=== PATIENT | male | born 1975 | race Caucasian/White ===

== ENCOUNTER 2022-04-01 09:35 | Outpatient (REF) | payer OTHER, SELFPAY ==
[2022-04-01 09:58] LABS: MANUAL DIFF FLAG NO
[2022-04-01 11:05] LABS: Basophils Percent Auto 0.6 % (0-2); Eosinophils Absolute Auto 0.2 X10*3/uL (0.0-0.4); Eosinophils Percent Auto 2.9 % (0-4); Hemoglobin 12.6 g/dl (14.0-18.0); Imm Gran Abs Auto 0.01 X10*3/uL (0.00-0.03); Imm Gran Pct Auto 0.2 % (0.0-0.4); Lymphocytes Absolute Auto 1.3 X10*3/uL (1.2-4.9); Lymphocytes Percent Auto 24.3 % (20-40); Mean Corpuscular HGB Conc 32.3 g/dl (31.0-36.0); Mean Corpuscular Volume 89.9 fL (80.0-98.0); Mean Platelet Volume 10.2 fL (9.4-12.4); Monocytes Absolute Auto 0.3 X10*3/uL (0.1-1.2); Monocytes Percent Auto 6.3 % (2-11); Neutrophils Absolute Auto 3.5 x10*3/uL (2.0-8.3); Neutrophils Percent Auto 65.7 % (45-73); Platelet Count 256 X10*3/uL (160-400); Red Blood Count 4.34 X10*6/uL (4.60-5.80); Red Cell Distribution Width 12.1 % (11.0-16.0); White Blood Count 5.3 X10*3/uL (4.8-10.8)
[2022-04-01 11:11] LABS: Estimated Average Glucose 105 mg/dL; Hemoglobin A1c % 5.3 %
[2022-04-01 11:33] LABS: Alanine Aminotransferase 20 U/L (0-40); Albumin Level 4.5 g/dL (3.5-5.0); Alkaline Phosphatase 87 U/L (39-117); Anion Gap 12 (12-20); Aspartate Amino Transferase 17 U/L (5-37); Bilirubin Total 0.4 mg/dL (0.0-1.0); Blood Urea Nitrogen 13 mg/dL (9-16); Calcium 9.6 mg/dL (8.4-10.2); Carbon Dioxide 30 mmol/L (22-29); Chloride 102 mmol/L (96-108); Cholesterol 179 mg/dL; Estimated Glomerular Filt Rate > 60; Glucose Fasting 102 mg/dL (60-99); HDL Cholesterol 50 mg/dL; LDL Cholesterol Calculated 121 mg/dl; Potassium 5.4 mmol/L (3.3-5.1); Sodium 139 mmol/L (135-145); Total Protein 7.7 g/dL (6.5-8.0); Triglycerides 40 mg/dL
[2022-04-01 11:49] LABS: Prostate Specific Antigen 0.14 ng/mL (<0.05-4.0); Thyroid Stimulating Hormone 0.91 uIU/mL (0.32-4.0); Vitamin D 25-OH Total 22.6 ng/mL (>30)
[2022-04-03 08:06] LABS: HBS Num1 0.94 mIU/mL (0-7.99); HIV AB/AG Nonreactive (Nonreactive); HIV Num 1 0.05 S/CO (0.00-0.99); Hepatitis B Surface Antigen Negative (Negative); ~Hepatitis B Surface Antibody NONREACTIVE (Nonreactive)
[2022-04-03 08:07] LABS: ~HepC Num1 0.11 S/CO (0.00-0.79); ~Hepatitis C Antibody Nonreactive (Nonreactive)
[2022-04-03 08:10] LABS: Syphilis Screen Nonreactive (Nonreactive)
== END 2022-04-01 09:36 | disposition home or self-care (01) ==
LOC: HO.LAB 09:35
PROVIDERS: PCP Family Medicine; Visit Provider Family Medicine
DX: E66.9 Obesity, unspecified (principal); Z11.3 Encounter for screening for infections with a predominantly sexual mode of transmission; Z12.5 Encounter for screening for malignant neoplasm of prostate; Z11.59 Encounter for screening for other viral diseases
CPT/HCPCS: 36415; 80053; 80061; 82306; 83036; 84153; 84443; 85025; 86592; 86706; 86780; 86803; 87340; 87389

== ENCOUNTER 2023-01-01 13:19 | Day surgery (SDC) | payer OTHER, SELFPAY ==
--- NOTE | 2022-12-29 10:50 | P.CONAN_ITS ---
Documented by User: Olesya Medley NP 12/29/22 10:50 HPI - Anesthesia Eval Consult details Narrative: 47yo M for Colonoscopy [facility] Past Medical History Medical History (Updated 12/29/22 @ 06:47 by Cathy Rosenbaum RN) Family history of patent foramen ovale Hx of appendicitis Surgical History Surgical History (Updated 12/29/22 @ 06:47 by Cathy Rosenbaum RN) Hx of appendectomy Hx of thumb surgery Social History Social History Patient Tobacco Use Status: Current everyday Tobacco user Are you DNR?: No Advance Directives: No Advance Directives Information Provided: Yes Nutrition Risks: No Nutritional Risk Meds Allergies Allergy/AdvReac Type Severity Reaction Status Date / Time No Known Allergies Allergy Verified 01/01/23 13:47 [No Known Allergies*] Home Medications Medication Instructions Recorded Confirmed Last Taken Type iron 12/29/22 12/29/22 Unknown History Exam Exam Date and Time: December 29, 2022 1050 Assessment and Plan Assessment Anesthesia Assessment: Chart Reviewed Documented by User: David Jacobs MD 01/01/23 13:10 [facility] Past Medical History Medical History (Updated 12/29/22 @ 06:47 by Cathy Rosenbaum RN) Family history of patent foramen ovale Hx of appendicitis Surgical History Surgical History (Updated 12/29/22 @ 06:47 by Cathy Rosenbaum RN) Hx of appendectomy Hx of thumb surgery History of Problems with Anesthesia: No Social History Social History Patient Tobacco Use Status: Current everyday Tobacco user Are you DNR?: No Advance Directives: No Advance Directives Information Provided: Yes Nutrition Risks: No Nutritional Risk Meds Allergies Allergy/AdvReac Type Severity Reaction Status Date / Time No Known Allergies Allergy Verified 01/01/23 13:47 [No Known Allergies*] Home Medications Medication Instructions Recorded Confirmed Last Taken Type iron 12/29/22 12/29/22 Unknown History Exam Airway Mallampati Class: II TM Dist: >3cm Neck ROM: Full Heart: rrr Lungs: cta Assessment and Plan Assessment Anesthesia Assessment: Anesthesia Plan Discussed Final Anesthetic Review History of Problems with Anesthesia: No NPO: Yes ASA Class: II Final Preanesthetic Review: No Changes in Pt Med Stat, Meds/Allgs Chart Reviewed, Consent Obtained/Reviewed and Anes Risks/Benef Reviewed Patient Risk: Low Procedure Risk: Low Anesthetic Plan Anesthetic Plan: MAC: and Agree w/ Assess. and Plan Disposition: Standard PACU Documented by User: Светлана Griffin MD 01/01/23 14:12 [facility] Past Medical History Medical History (Updated 12/29/22 @ 06:47 by Cathy Rosenbaum RN) Family history of patent foramen ovale Hx of appendicitis Family History Family history of problems with anesthesia: No Surgical History Surgical History (Updated 12/29/22 @ 06:47 by Cathy Rosenbaum RN) Hx of appendectomy Hx of thumb surgery Social History Social History Patient Tobacco Use Status: Current everyday Tobacco user Are you DNR?: No Advance Directives: No Advance Directives Information Provided: Yes Nutrition Risks: No Nutritional Risk Meds Allergies Allergy/AdvReac Type Severity Reaction Status Date / Time No Known Allergies Allergy Verified 01/01/23 13:47 [No Known Allergies*] Home Medications Medication Instructions Recorded Confirmed Last Taken Type iron 12/29/22 12/29/22 Unknown History Assessment and Plan Final Anesthetic Review Family History of Problems with Anesthesia: No
[2023-01-01 12:45] VITALS: BMI 26.2
[2023-01-01] MEDS: Sodium Phosphate,Mono-Dibasic 133 ML ENEMA PR (13:37)
[2023-01-01] MEDS: Lactated Ringers 1,000 ML 100 ML IVCONT (13:54)
[2023-01-01 14:04] VITALS: BP 118/76; PULSE 74; RESP 18; TEMP 36.6; O2SAT 100
--- NOTE | 2023-01-01 15:07 | P.BOP_ITS ---
Brief Operative Note Date of Service: 01/01/23 Pre-op diagnosis: Screening Post-op diagnosis: other (Incomplete colonoscopy due to poor prep) Procedure: Colonoscopy to tranverse colon Surgeon: Larry Shukla Anesthesia: MAC Was an Obstetrical Nurse used for this Procedure?: No Estimated blood loss (mL): 0 Pathology: none sent Condition: stable Disposition: PACU
[2023-01-01 15:10] VITALS: BP 95/59; PULSE 63; RESP 16; TEMP 36.4; O2SAT 96
[2023-01-01 15:25] VITALS: BP 114/79; PULSE 62; RESP 16; TEMP 36.3; O2SAT 99
--- NOTE | 2023-01-02 02:06 | OP_ITS ---
SURGEON: Larry Shukla MD INDICATIONS: The patient presents for evaluation of colorectal cancer screening. Full consent has been obtained from him for this, including risks of bleeding and perforation. PREOPERATIVE DIAGNOSIS: Colorectal cancer screening. POSTOPERATIVE DIAGNOSIS: Colorectal cancer screening, incomplete exam due to poor prep. PROCEDURE PERFORMED: Incomplete colonoscopy to the transverse colon due to poor prep. ESTIMATED BLOOD LOSS: COMPLICATIONS: ANESTHESIA: Medication used, monitored anesthesia care. ASSISTANTS: SPECIMENS: DESCRIPTION OF PROCEDURE: The patient was placed in the left lateral decubitus position. The digital rectal exam revealed no abnormalities. The Olympus video pediatric colonoscope was then entered into the rectum and advanced to the level of what appeared to be distal transverse colon judging by the anatomic appearance of the colon. Both proximal and distal to this was solid stool. Therefore, I opted not to proceed any further as visualization was severely limited. The scope was slowly withdrawn assessing all mucosal surfaces carefully, although again preparation was very limited. I did not visualize any lesions. In the rectum, the scope was retroflexed visualizing some minimal hemorrhoidal tissue, but no other pathology. The rectal mucosa appeared normal, although visualization was limitied The scope was straightened out and withdrawn from the patient. He tolerated the procedure well and was returned to the recovery area in stable condition. IMPRESSION: Incomplete colonoscopy to the transverse colon due to poor prep. Plan: The patient has been instructed to contact my office so we can schedule a colonoscopy with him again with a complete 2 day prep. This has been discussed with his significant other, Staci. MD GRECIA Tamayo/VIVIANE / [phone] AGATHA
== END 2023-01-01 15:52 | disposition home or self-care (01) ==
PROVIDERS: PCP Family Medicine; Visit Provider Internal Medicine
PROC: 0DJD8ZZ Inspection of Lower Intestinal Tract, Via Natural or Artificial Opening Endoscopic (ICD-10-PCS; CPT 45378; principal; 2023-01-01 14:20)
DX: Z12.11 Encounter for screening for malignant neoplasm of colon (principal); Z53.8 Procedure and treatment not carried out for other reasons; K64.8 Other hemorrhoids; F17.210 Nicotine dependence, cigarettes, uncomplicated
CPT/HCPCS: 45378; J3010

== ENCOUNTER 2023-08-28 13:06 | Outpatient (AMB) | payer OTHER, SELFPAY ==
--- NOTE | 2023-08-28 13:09 | MHC.OFFVIS ---
Intake Vital Signs 08/28/23 13:17 Height 5 ft 10 in Weight 178 lb 4 oz BMI 25.6 BP 140/81 H Blood Pressure Location Lt brachial Position Sitting Pulse 87 Intake Visit Reasons: Umbilical hernia Intake Note: Patient is seen in office for evaluation and treatment of an umbilical hernia. Patient c/o: onset 8 months, reducible, above the belly button, some constipation, had prior appendectomy, denies any other concerns Allergies No Known Allergies [No Known Allergies*] Allergy (Verified 01/01/23 13:47) Medication List - Last Reconciled 08/28/23 by Erik Headley MD hydroxyzine pamoate mg PO ibuprofen mg PO [iron ] sildenafil (Viagra) 100 mg PO DAILY PRN HPI HPI Comments History of Present Illness Details 47-year-old male patient presenting for evaluation of an abdominal wall hernia. He reports 1st developing the hernia 3-4 months ago and since this time the hernias increased in size. He reports some mild discomfort associated with the hernia but denies any severe pain, nausea or vomiting. He typically wears a belt over the hernia which seems to help when he needs to lift. 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 He reports a previous laparoscopic appendectomy but does not feel there is an incision at the site of the current hernia. [facility] Medical History History of substance abuse Hx of appendicitis Family history of patent foramen ovale Surgical History Hx of thumb surgery Hx of appendectomy Family History Father Lung cancer Social History Patient Tobacco Use Status: Current everyday Tobacco user Review of Systems Const All systems reviewed & are unremarkable except as noted in HPI and below Denies chills, Denies fever(s), Denies headache(s), Denies poor appetite and Denies weakness ENT Denies headache(s) Card Denies chest pain, Denies irregular heart rhythm, Denies palpitations and Denies dyspnea Resp Denies cough, Denies excessive phlegm production and Denies dyspnea GI Denies abdominal pain, Denies bloating, Denies change in bowel habits, Denies constipation, Denies heartburn, Denies diarrhea, Denies nausea and Denies vomiting Denies difficulty urinating and Denies urinary frequency Musc Denies back pain, Denies muscle weakness and Denies numbness Skin/Breast Denies changing lesions and Denies unusual bruising Neuro Denies headache(s), Denies numbness, Denies paresthesias and Denies weakness Psych Denies anxiety and Denies depression Endo Denies palpitations Andres/Lymph Denies lymphadenopathy Physical Exam Vital Signs: Last Vital Signs Pulse 87 08/28/23 13:17 BP 140/81 H 08/28/23 13:17 BMI result Body Mass Index 25.6 Const Other: Smell of alcohol and tobacco General: cooperative and no acute distress Nutritional Appearance: well nourished Orientation/consciousness: patient oriented x3 Limitations: no limitations HEENT Head: Yes normocephalic and Yes atraumatic Ears: hearing grossly normal bilaterally Resp Effort & Inspection: normal respiratory effort, no audible wheezes, no cough and no respiratory distress Cardio Jugular venous distension: no JVD GI Inspection: Yes normal to inspection Palpation (GI): Soft to palpation, nontender, no guarding, not rigid and Hernia present ventral Abdomen image: 1. Ventral hernia located just above the umbilicus measuring approximately 3 cm in diameter, reducible to light pressure. Hernia is nontender to palpation. Skin Other: Warm, dry, no rash Neuro General: patient oriented x3 Extrem General: Yes no clubbing, cyanosis or edema Assessment & Plan Assessment & Plan (1) Ventral hernia: Code(s): K43.9 - Ventral hernia without obstruction or gangrene Qualifiers: Obstruction and gangrene presence: without obstruction or gangrene Qualified Code(s): K43.9 - Ventral hernia without obstruction or gangrene Plan 47-year-old male patient presenting with an enlarging ventral hernia which is causing some mild discomfort. On examination the patient has a easily reducible ventral hernia located just above the umbilicus measuring approximately 3 cm in diameter. I recommended repair of this ventral hernia with mesh. After discussion of the procedure, risks, and alternatives, he consents to repair of the ventral hernia with mesh. This will be scheduled as a short-stay surgery. Coding Level of Care Code New Pt Level 4 (82625) Diagnoses Ventral hernia without obstruction or gangrene K43.9 Obstruction and gangrene presence: without obstruction or gangrene
[2023-08-28 13:17] VITALS: BP 140/81; PULSE 87; BMI 25.6
== END 2023-08-28 13:22 | disposition home or self-care (01) ==
PROVIDERS: PCP Family Medicine; Referring Provider Family Medicine; Visit Provider Surgery
DX: K43.9 Ventral hernia without obstruction or gangrene (principal)
CPT/HCPCS: 99204

== ENCOUNTER → 2023-08-28 13:06 | Outpatient (BNVA) | payer OTHER, SELFPAY | PROVIDERS: PCP Family Medicine; Referring Provider Family Medicine; Visit Provider Surgery | DX: K43.9 Ventral hernia without obstruction or gangrene (principal) | CPT/HCPCS: 99202 ==

== ENCOUNTER 2023-09-19 06:07 | Day surgery (SDC) | payer OTHER, SELFPAY ==
--- NOTE | 2023-09-18 09:10 | HO.ANESPROP2 ---
Documented by User: Olesya Medley NP 09/18/23 09:10 HPI - Anesthesia Eval Consult details Narrative: 47yo M for Hernia Repair Ventral with mesh s/p colo 12/2022 with [facility] PMF[facility] Active Problems Active Problems: All Active Problems (Updated 08/28/23 @ 13:25 by Erik Headley MD) Ventral hernia (Acute) Past Medical History Medical History Anemia History of substance abuse Hx of appendicitis Family history of patent foramen ovale Family History Family History Father Lung cancer Family history of problems with anesthesia: No Surgical History Surgical History H/O colonoscopy Hx of thumb surgery Hx of appendectomy History of Problems with Anesthesia: No Social History Social History Patient Tobacco Use Status: Current everyday Tobacco user Tobacco use type: Cigarette Cigarettes Per Day: 10 Use of substances other than those prescribed or required for medical reasons: No Are you DNR?: No Advance Directives: No Advance Directives Information Provided: Yes Meds Allergies Allergy/AdvReac Type Severity Reaction Status Date / Time No Known Allergies Allergy Verified 01/01/23 13:47 [No Known Allergies*] Home Medications Medication Instructions Recorded Confirmed Last Taken Type hydroxyzine pamoate 25 mg capsule 25 mg PO Q6-8H PRN Anxiety 08/28/23 09/19/23 Unknown History ibuprofen 800 mg tablet 800 mg PO Q6-8H PRN Pain 08/28/23 09/19/23 Unknown History sildenafil 100 mg tablet (Viagra) 100 mg PO DAILY PRN Erectile 08/28/23 09/19/23 Unknown History Dysfunction Assessment and Plan Assessment Anesthesia Assessment: Chart Reviewed Final Anesthetic Review Family History of Problems with Anesthesia: No History of Problems with Anesthesia: No Documented by User: Madeline Chowdhury MD 09/19/23 11:51 PMF[facility] Active Problems Active Problems: All Active Problems (Updated 09/19/23 @ 11:08 by Madeline Chowduhry MD) Ventral hernia (Acute) H/o opiate abuse. On suboxone. Took this morning. ?0.75mg. Tapering off on his own Sildenafil. Last dose 2 days ago Smoker. Last cigarette couple of hours ago Past Medical History Medical History Anemia History of substance abuse Hx of appendicitis Family history of patent foramen ovale Family History Family History Father Lung cancer Surgical History Surgical History H/O colonoscopy Hx of thumb surgery Hx of appendectomy Social History Social History Patient Tobacco Use Status: Current everyday Tobacco user Tobacco use type: Cigarette Cigarettes Per Day: 10 Use of substances other than those prescribed or required for medical reasons: No Are you DNR?: No Advance Directives: No Advance Directives Information Provided: Yes Meds Allergies Allergy/AdvReac Type Severity Reaction Status Date / Time No Known Allergies Allergy Verified 01/01/23 13:47 [No Known Allergies*] Home Medications Medication Instructions Recorded Confirmed Last Taken Type hydroxyzine pamoate 25 mg capsule 25 mg PO Q6-8H PRN Anxiety 08/28/23 09/19/23 Unknown History ibuprofen 800 mg tablet 800 mg PO Q6-8H PRN Pain 08/28/23 09/19/23 Unknown History sildenafil 100 mg tablet (Viagra) 100 mg PO DAILY PRN Erectile 08/28/23 09/19/23 Unknown History Dysfunction Exam Height,Weight and Vital Signs: Height 5 ft 10 in Weight 80.343 kg Vital Signs Temp Pulse Resp BP Pulse Ox O2 Del Method 09/19/23 09:55 68 16 115/78 96 Room Air 09/19/23 06:29 98.0 F 79 16 115/83 95 Room Air Airway Mallampati Class: II TM Dist: >3cm Neck ROM: Full Loose/Missing/Broken Teeth: Yes (Missing some teeth top right and left. Denies broken or loose teeth) Heart: RRR Lungs: CTAB Assessment and Plan Assessment Anesthesia Assessment: Anesthesia Plan Discussed Final Anesthetic Review NPO: Yes ASA Class: II Final Preanesthetic Review: No Changes in Pt Med Stat, Meds/Allgs Chart Reviewed, Consent Obtained/Reviewed and Anes Risks/Benef Reviewed Patient Risk: Intermediate Procedure Risk: Low Assessment/Block/Sedation in SS: Assess/Block/Sedation-SS Anesthetic Plan Anesthetic Plan: GA Disposition: Standard PACU
[2023-09-19] VITALS (9 sets, daily range): BP systolic 91–115; BP diastolic 54–83; PULSE 54–79; RESP 11–18; TEMP 36.2–36.7; O2SAT 95–100; BMI 25.4
[2023-09-19] MEDS: Lactated Ringers 1,000 ML 100 ML IVCONT (10:02)
--- NOTE | 2023-09-19 11:16 | MHC.SHP ---
Pre-Procedural Eval Section A Date of Service: 09/19/23 The patient is an INPATIENT: No Changes since office visit: Yes Patient answered all questions; No Cold of Flu in the past 2 weeks, No New Medical Problems and No Changes in Medication The History & Physical has been completed within 30 days and I have reviewed it.: Yes Section B Chief Complaint: Ventral hernia without obstruction or gangrene Allergies: Allergies Allergy/AdvReac Type Severity Reaction Status Date / Time No Known Allergies Allergy Verified 01/01/23 13:47 [No Known Allergies*] Plan Diagnosis/Plan: Unchanged I have reviewed the history and physical and performed a pertinent physical examination on my patient. No changes have occurred unless specified. Time Spent With Patient Time: Total time managing care of this patient today ____ minutes.
--- NOTE | 2023-09-19 12:18 | W.PM.OPN ---
Operative Note Operative Note Date of Service: 09/19/23 Narrative: Preoperative diagnosis: Ventral hernia Postoperative diagnosis: Same Procedure: Repair of ventral hernia with mesh Surgeon: Erik Headley MD Local [employer] Hazmat Driver: None Anesthesia: General, LMA Indications for procedure: 47-year-old male patient presenting with a palpable lump located above the umbilicus which increases in size with lifting and straining and reduces with light pressure. The patient reports some moderate discomfort associated with the lump. On examination the lump increases in size with Valsalva maneuvers but reduces with light pressure. Operative findings: 2 cm ventral hernia located above the umbilicus repaired with a 4.6 cm round Ventralex mesh. Specimen: None Estimated blood loss: Less than 2 mL Complications: None Procedure details: Patient was brought to the OR placed in a supine position. After administering general anesthesia patient's abdomen was prepped with ChloraPrep. A surgical time-out was called the consent confirmed. Patient received preoperative antibiotics and Venodyne boots were in place. Local anesthesia consisting of 0.5% Sensorcaine was infiltrated around the umbilicus. A curvilinear incision was then made with a 15 blade and carried out through subcutaneous tissue. Dissection was continued down into the subcutaneous tissue up to the hernia sac. This was then dissected circumferentially down to fascial edge. The hernia sac consisted of preperitoneal fat. This was reduced into the preperitoneal space. A preperitoneal space was then created using electrocautery and sharp dissection. A 4.6 cm round Ventralex mesh was then obtained. This was deployed within the preperitoneal space and secured in 4 quadrants using 1 Tycron sutures. The fascia was then closed using [id number] 1 Tycron sutures including the mesh within the closure. Wounds were then irrigated with saline solution and suctioned dry. Wounds were checked for hemostasis. Dermis was then closed using interrupted 3-0 Polysorb sutures. Skin was closed using a running subcuticular 4-0 Polysorb suture. Steri-Strips, 2 x 2 gauze and Tegaderm were then applied. The patient tolerated the procedure well. Sponge, instrument, and needle counts reported as correct. The patient was transferred to PACU in stable condition.
== END 2023-09-19 14:00 | disposition home or self-care (01) ==
PROVIDERS: PCP Family Medicine; Visit Provider Surgery
PROC: (CPT 49591; principal; 2023-09-19 10:30)
DX: K43.9 Ventral hernia without obstruction or gangrene (principal); K59.00 Constipation, unspecified; F19.11 Other psychoactive substance abuse, in remission; Z79.1 Long term (current) use of non-steroidal anti-inflammatories (NSAID); F17.210 Nicotine dependence, cigarettes, uncomplicated
CPT/HCPCS: 49591; C1781; J0690; J1100; J2250; J2405; J2704; J2765; J2795; J3010

== ENCOUNTER → 2023-09-19 06:07 | Outpatient (BNV) | payer OTHER, SELFPAY | PROVIDERS: PCP Family Medicine; Visit Provider Surgery | DX: K43.9 Ventral hernia without obstruction or gangrene (principal) | CPT/HCPCS: 49591 ==

== ENCOUNTER 2023-09-27 15:58 | Outpatient (AMB) | payer OTHER, SELFPAY ==
--- NOTE | 2023-09-27 16:10 | MHC.OFFVIS ---
Intake Intake Visit Reasons: S/P ventral hernia w/mesh Intake Note: Patient is seen in office for post op assessment post ventral hernia repair. 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 He returns 1st postoperative visit. He reports some incisional pain but generally feels well. He denies nausea, vomiting, fever or chills. PFSH Medical History Anemia History of substance abuse Hx of appendicitis Family history of patent foramen ovale Surgical History H/O colonoscopy Hx of thumb surgery Hx of appendectomy Family History Father Lung cancer Social History Patient Tobacco Use Status: Current everyday Tobacco user Tobacco use type: Cigarette Cigarettes Per Day: 10 Physical Exam Const General: no acute distress Nutritional Appearance: well nourished Orientation/consciousness: patient oriented x3 Resp Effort & Inspection: normal respiratory effort GI Other: Abdominal incision is clean, dry, and intact without redness or discharge. Steri-Strips intact. Neuro General: patient oriented x3 Extrem General: No edema Assessment & Plan Assessment & Plan (1) Ventral hernia: Code(s): K43.9 - Ventral hernia without obstruction or gangrene Qualifiers: Obstruction and gangrene presence: without obstruction or gangrene Qualified Code(s): K43.9 - Ventral hernia without obstruction or gangrene Plan 47-year-old male patient returning 1 week following repair of ventral hernia with mesh. He tolerated the procedure well and his wounds are healing nicely without evidence of hernia recurrence or infection. He should continue to avoid lifting greater than 10 lb and return in 1 month for follow-up examination. Coding Level of Care Code Global (23124) Diagnoses Ventral hernia without obstruction or gangrene K43.9 Obstruction and gangrene presence: without obstruction or gangrene
== END 2023-09-27 16:15 | disposition home or self-care (01) ==
PROVIDERS: PCP Family Medicine; Visit Provider Surgery
DX: K43.9 Ventral hernia without obstruction or gangrene (principal)
CPT/HCPCS: 99212

== ENCOUNTER → 2023-09-27 15:58 | Outpatient (BNVA) | payer OTHER, SELFPAY | PROVIDERS: PCP Family Medicine; Visit Provider Surgery | DX: K43.9 Ventral hernia without obstruction or gangrene (principal) | CPT/HCPCS: 99212 ==

== ENCOUNTER 2024-07-09 15:42 | Emergency (ER) | payer MEDICAID, SELFPAY ==
--- NOTE | ~2024-07-09 | XR_ITS ---
EXAMINATION: XR KNEE, RIGHT CLINICAL INFORMATION: Swelling, assess for foreign body COMPARISON: None available. TECHNIQUE: Four views of the right knee. FINDINGS: Notable soft tissue swelling likely over the prepatellar region. No underlying joint effusion infiltration of Hoffa's fat pad. Joint spaces preserved. No gross radiopaque foreign body evident. XR/XR knee RT 4V IMPRESSION: Soft tissue swelling as above. No gross radiopaque foreign body. If a nonopaque foreign body is clinically suspected consider targeted ultrasound. Electronically signed by: Bert Dalton MD 07/09/2024 05:09 PM EDT
--- NOTE | 2024-07-09 16:02 | ED_ITS ---
<Statement entered by Anurag Ho MD - 07/13/24 00:32> Duplicate chart HPI - General Adult General Chief complaint: Skin/Abscess/Foreign Body Stated complaint: r knee infection-need drained Time Seen by Provider: 07/10/24 00:32 Related Data Home Medications ?Medication ?Instructions ?Recorded ?Confirmed hydroxyzine pamoate 25 mg capsule 25 mg PO Q6-8H PRN Anxiety 08/28/23 09/28/23 ibuprofen 800 mg tablet 800 mg PO Q6-8H PRN Pain 08/28/23 09/28/23 sildenafil 100 mg tablet (Viagra) 100 mg PO DAILY PRN Erectile 08/28/23 09/28/23 Dysfunction Previous Rx's ?Medication ?Instructions ?Recorded docusate sodium 100 mg capsule 100 mg PO DAILY #30 caps 09/20/23 (Colace) ibuprofen 600 mg tablet 600 mg PO Q8H PRN pain (scale 09/20/23 score 4-6) #14 tabs cephalexin 500 mg capsule 500 mg PO QID 10 days #40 caps 07/10/24 doxycycline hyclate 100 mg tablet 100 mg PO BID #20 tabs 07/10/24 oxycodone 5 mg tablet 5 mg PO Q6H PRN pain #20 tabs 07/10/24 Allergies Allergy/AdvReac Type Severity Reaction Status Date / Time No Known Allergies Allergy Verified 07/11/24 09:37 [No Known Allergies*] PMFSH Past Medical History Medical History Anemia History of substance abuse Hx of appendicitis Family history of patent foramen ovale Surgical History H/O colonoscopy Hx of thumb surgery Hx of appendectomy Family History Family History Father Lung cancer Social History Social History Unable to assess alcohol history related to: Unknown Patient Tobacco Use Status: Current everyday Tobacco user Tobacco use type: Cigarette Cigarettes Per Day: 10 Smoked in Last 30 Days: Yes Use of substances other than those prescribed or required for medical reasons: Unknown Advance Directives: No Advance Directives Information Provided: Yes Physical Exam ED Vital Signs: BMI result Body Mass Index 27.4 Course Course Course Narrative: This is a rapid medical exam performed by Blanca Garcia NP: Additional HPI, ROS, PE not included below will be deferred to primary provider. Patient is a 48-year-old male presenting to the ED with complaint of right knee pain, redness, swelling. Reports started as a small pustule which he popped, worsening redness and swelling since, occasional purulent drainage. Erythema and swelling to anterior knee. 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 Unknown last Tdap. Plan: labs, x-ray, tdap Medications Administered Discontinued Medications Generic Name Dose Route Start Last Admin Trade Name Freq PRN Reason Stop Dose Admin Cephalexin HCl 500 mg 07/10/24 00:53 07/10/24 01:20 Cephalexin 500 Mg Capsule PO 07/10/24 00:54 500 mg ONCE ONE Administration Diphtheria/Tetanus/Acell Pertussis 0.5 ml 07/09/24 16:04 07/09/24 20:01 Diphth,Pertus(Acell),Tet Adult 0.5 Ml Syringe IM 07/09/24 16:05 0.5 ml .ONCE ONE Administration Doxycycline Monohydrate 100 mg 07/10/24 00:53 07/10/24 01:20 Doxycycline Monohydrate 100 Mg Capsule PO 07/10/24 00:54 100 mg ONCE ONE Administration Ibuprofen 600 mg 07/09/24 19:46 07/09/24 20:01 Ibuprofen 600 Mg Tablet PO 07/09/24 19:47 600 mg ONCE ONE Administration Lidocaine HCl 10 ml 07/10/24 00:53 07/10/24 01:20 Lidocaine Hcl 1 % Mpf 5 Ml Vial INFILTRATI 07/10/24 00:54 10 ml ONCE ONE Administration Oxycodone HCl 10 mg 07/10/24 01:22 07/10/24 01:28 Oxycodone Hcl Immed Release 5 Mg Tablet PO 07/10/24 01:23 Not Given ONCE ONE Medical Decision Making Lab Data 07/09/24 19:43 07/09/24 19:43 Labs: Lab Results 07/09/24 Range/Units 19:43 WBC 12.7 H (4.8-10.8) X10*3/uL RBC 4.81 (4.60-5.80) X10*6/uL Hgb 14.6 (14.0-18.0) g/dl Hct 42.9 (42.0-52.0) % MCV 89.2 (80.0-98.0) fL MCH 30.4 (27.0-33.0) pg MCHC 34.0 (31.0-36.0) g/dl RDW 12.0 (11.0-16.0) % Plt Count 297 (160-400) X10*3/uL MPV 9.1 L (9.4-12.4) fL Immature Gran % (Auto) 0.3 (0.0-0.4) % Neut % (Auto) 79.6 H (45-73) % Lymph % (Auto) 13.5 L (20-40) % [place] % (Auto) 5.0 (2-11) % Eos % (Auto) 1.3 (0-4) % Baso % (Auto) 0.3 (0-2) % Lymph # (Auto) 1.7 (1.2-4.9) X10*3/uL [place] # (Auto) 0.6 (0.1-1.2) X10*3/uL Eos # (Auto) 0.2 (0.0-0.4) X10*3/uL Baso # (Auto) 0.0 (0.0-0.2) X10*3/uL Abs Immat Gran (auto) 0.04 H (0.00-0.03) X10*3/uL Absolute Neuts (auto) 10.1 H (2.0-8.3) x10*3/uL Absolute Nucleated RBC 0.000 (0.0-0.012) X10*3/uL Nucleated RBC % (auto) 0.0 (0.0-0.2) /100WBC ESR 34 H (0-15) MM/HR Sodium 137 (135-145) mmol/L Potassium 3.9 (3.3-5.1) mmol/L Chloride 102 (96-108) mmol/L Carbon Dioxide 24 (22-29) mmol/L Anion Gap 15 (12-20) BUN 12 (9-16) mg/dL Creatinine 0.82 (0.5-1.4) mg/dL Estim Creat Clear Calc 113.7 Estimated GFR > 60 Random Glucose 151 H (60-115) mg/dL Calcium 9.6 (8.4-10.2) mg/dL Total Bilirubin 0.4 (0.0-1.0) mg/dL AST 11 (5-37) U/L ALT 12 (0-40) U/L Alkaline Phosphatase 86 (39-117) U/L C-Reactive Protein 2.41 H (< or = 0.50) mg/dL Total Protein 8.1 H (6.5-8.0) g/dL Albumin 4.3 (3.5-5.0) g/dL Discharge Plan Discharge Clinical Impression: Infected prepatellar bursa Patient Disposition: Home, Self-Care Instructions: Knee Bursitis (ED) Additional Instructions: Local care as advised Take antibiotic as prescribed Report to the ER if worsening of the pain/swelling Pain medication as prescribed Prescriptions: New cephalexin 500 mg capsule 500 mg PO QID 10 Days Qty: 40 0RF doxycycline hyclate 100 mg tablet 100 mg PO BID Qty: 20 0RF oxycodone 5 mg tablet 5 mg PO Q6H PRN (Reason: pain) Qty: 20 0RF Rx Instructions: Partial Fill upon patient request. No Action docusate sodium [Colace] 100 mg capsule 100 mg PO DAILY Qty: 30 0RF ibuprofen 600 mg tablet 600 mg PO Q8H PRN (Reason: pain (scale score 4-6)) Qty: 14 0RF sildenafil [Viagra] 100 mg tablet 100 mg PO DAILY PRN (Reason: Erectile Dysfunction) ibuprofen 800 mg tablet 800 mg PO Q6-8H PRN (Reason: Pain) hydroxyzine pamoate 25 mg capsule 25 mg PO Q6-8H PRN (Reason: Anxiety) Interventions: ED Discharge Assessment Last Done: 07/10/24 01:29 Discharge Date/Time: 07/10/24 01:31 Print Language: Mohawk
[2024-07-09 16:04] VITALS: BP 114/73; PULSE 87; RESP 20; TEMP 36.8; O2SAT 98; BMI 27.4
[2024-07-09 19:46] LABS: MANUAL DIFF FLAG NO
[2024-07-09 19:50] LABS: Basophils Percent Auto 0.3 % (0-2); Eosinophils Absolute Auto 0.2 X10*3/uL (0.0-0.4); Eosinophils Percent Auto 1.3 % (0-4); Hematocrit 42.9 % (42.0-52.0); Hemoglobin 14.6 g/dl (14.0-18.0); Imm Gran Abs Auto 0.04 X10*3/uL (0.00-0.03); Imm Gran Pct Auto 0.3 % (0.0-0.4); Lymphocytes Absolute Auto 1.7 X10*3/uL (1.2-4.9); Lymphocytes Percent Auto 13.5 % (20-40); Mean Corpuscular Hemoglobin 30.4 pg (27.0-33.0); Mean Corpuscular Volume 89.2 fL (80.0-98.0); Mean Platelet Volume 9.1 fL (9.4-12.4); Monocytes Absolute Auto 0.6 X10*3/uL (0.1-1.2); Neutrophils Absolute Auto 10.1 x10*3/uL (2.0-8.3); Neutrophils Percent Auto 79.6 % (45-73); Platelet Count 297 X10*3/uL (160-400); Red Blood Count 4.81 X10*6/uL (4.60-5.80); White Blood Count 12.7 X10*3/uL (4.8-10.8)
[2024-07-09] MEDS: Diphth,Pertus(ACell),Tet Adult 0.5 ML SYRINGE IM (20:01)
[2024-07-09] MEDS: Ibuprofen 600 MG TABLET PO (20:01)
[2024-07-09 20:03] LABS: Alanine Aminotransferase 12 U/L (0-40); Albumin Level 4.3 g/dL (3.5-5.0); Alkaline Phosphatase 86 U/L (39-117); Anion Gap 15 (12-20); Aspartate Amino Transferase 11 U/L (5-37); Bilirubin Total 0.4 mg/dL (0.0-1.0); Blood Urea Nitrogen 12 mg/dL (9-16); C Reactive Protein 2.41 mg/dL (< or = 0.50); Calcium 9.6 mg/dL (8.4-10.2); Carbon Dioxide 24 mmol/L (22-29); Chloride 102 mmol/L (96-108); Creatinine Clr Calc Pharmacy 113.7; Estimated Glomerular Filt Rate > 60; Glucose Random 151 mg/dL (60-115); Potassium 3.9 mmol/L (3.3-5.1); Sodium 137 mmol/L (135-145); Total Protein 8.1 g/dL (6.5-8.0)
[2024-07-09 20:36] LABS: Erythrocyte Sedimentation Rate 34 MM/HR (0-15)
[2024-07-09 22:13] VITALS: BP 117/65; PULSE 81; RESP 18; O2SAT 100
--- NOTE | 2024-07-10 01:05 | PC.NURSE ---
Pt requested and given water. Provider with pt. Provider to administer lido
[2024-07-10] MEDS: cephALEXin 500 MG CAPSULE PO (01:20)
[2024-07-10] MEDS: Lidocaine HCl 1 % MPF 5 ML VIAL 10 ML INFILTRATI (01:20)
[2024-07-10] MEDS: Doxycycline Monohydrate 100 MG CAPSULE PO (01:20)
--- NOTE | 2024-07-10 01:27 | PC.NURSE ---
Pt medicated per [facility] Plan of care ongoing.
[2024-07-10 01:29] VITALS: BP 118/68; PULSE 80; RESP 20; TEMP 36.7; O2SAT 98
--- NOTE | 2024-07-10 01:34 | ED.SKABFB ---
HPI - Skin/Abscess/Foreign Bdy General Chief complaint: Skin/Abscess/Foreign Body Stated complaint: r knee infection-need drained Time Seen by Provider: 07/10/24 00:32 Source: patient Mode of arrival: ambulatory Limitations: no limitations History of Present Illness ED Provider: yesy MEDRANO narrative: Patient otherwise healthy had a small pimple on the right patella about a week ago patient's squeeze that and comes here with increased pain and swelling and redness since then able to ambulate no knee joint effusion no history of MRSA infection Related Data Home Medications ?Medication ?Instructions ?Recorded ?Confirmed hydroxyzine pamoate 25 mg capsule 25 mg PO Q6-8H PRN Anxiety 08/28/23 09/28/23 ibuprofen 800 mg tablet 800 mg PO Q6-8H PRN Pain 08/28/23 09/28/23 sildenafil 100 mg tablet (Viagra) 100 mg PO DAILY PRN Erectile 08/28/23 09/28/23 Dysfunction Previous Rx's ?Medication ?Instructions ?Recorded docusate sodium 100 mg capsule 100 mg PO DAILY #30 caps 09/20/23 (Colace) ibuprofen 600 mg tablet 600 mg PO Q8H PRN pain (scale 09/20/23 score 4-6) #14 tabs cephalexin 500 mg capsule 500 mg PO QID 10 days #40 caps 07/10/24 doxycycline hyclate 100 mg tablet 100 mg PO BID #20 tabs 07/10/24 oxycodone 5 mg tablet 5 mg PO Q6H PRN pain #20 tabs 07/10/24 Allergies Allergy/AdvReac Type Severity Reaction Status Date / Time No Known Allergies Allergy Verified 07/09/24 16:07 [No Known Allergies*] Review of Systems Review of Systems: Yes all other systems are reviewed and are negative [facility] Past Medical History Medical History Anemia History of substance abuse Hx of appendicitis Family history of patent foramen ovale Surgical History H/O colonoscopy Hx of thumb surgery Hx of appendectomy Family History Family History Father Lung cancer Social History Social History Patient Tobacco Use Status: Current everyday Tobacco user Tobacco use type: Cigarette Cigarettes Per Day: 10 Advance Directives: No Advance Directives Information Provided: No Physical Exam Vital Signs: Vital Signs: Last Vital Signs Temp 98.0 F 07/10/24 01:29 Pulse 80 07/10/24 01:29 Resp 20 07/10/24 01:29 BP 118/68 07/10/24 01:29 Pulse Ox 98 07/10/24 01:29 O2 Del Method Room Air 07/10/24 01:29 BMI result Body Mass Index 27.4 Appearance: Alert. Oriented X3. No acute distress. Neck: Normal inspection. Neck supple. CVS: Normal heart rate and rhythm. Pulses normal. Respiratory: No respiratory distress. Equal air entry bilateral, Abdomen: Soft and nontender. Bowel sounds are present, Skin: Skin warm and dry. Normal skin color. Normal skin turgor. Redness and tenderness of right prepatellar bursa Extremities: No lower extremity edema. No calf tenderness Neuro: Oriented X 3. Medications Administered Discontinued Medications Generic Name Dose Route Start Last Admin Trade Name Freq PRN Reason Stop Dose Admin Cephalexin HCl 500 mg 07/10/24 00:53 07/10/24 01:20 Cephalexin 500 Mg Capsule PO 07/10/24 00:54 500 mg ONCE ONE Administration Diphtheria/Tetanus/Acell Pertussis 0.5 ml 07/09/24 16:04 07/09/24 20:01 Diphth,Pertus(Acell),Tet Adult 0.5 Ml Syringe IM 07/09/24 16:05 0.5 ml .ONCE ONE Administration Doxycycline Monohydrate 100 mg 07/10/24 00:53 07/10/24 01:20 Doxycycline Monohydrate 100 Mg Capsule PO 07/10/24 00:54 100 mg ONCE ONE Administration Ibuprofen 600 mg 07/09/24 19:46 07/09/24 20:01 Ibuprofen 600 Mg Tablet PO 07/09/24 19:47 600 mg ONCE ONE Administration Lidocaine HCl 10 ml 07/10/24 00:53 07/10/24 01:20 Lidocaine Hcl 1 % Mpf 5 Ml Vial INFILTRATI 07/10/24 00:54 10 ml ONCE ONE Administration Oxycodone HCl 10 mg 07/10/24 01:22 07/10/24 01:28 Oxycodone Hcl Immed Release 5 Mg Tablet PO 07/10/24 01:23 Not Given ONCE ONE Medical Decision Making Medical Decision Making [facility] Narrative: Patient with pre patellar bursitis without any abscess does have cellulitis I and D was done no significant pus was drained will prescribe doxycycline cephalexin Lab Data [facility] Lab Attestation statement: I reviewed the patient's lab results. 07/09/24 19:43 07/09/24 19:43 Labs: Lab Results 07/09/24 Range/Units 19:43 WBC 12.7 H (4.8-10.8) X10*3/uL RBC 4.81 (4.60-5.80) X10*6/uL Hgb 14.6 (14.0-18.0) g/dl Hct 42.9 (42.0-52.0) % MCV 89.2 (80.0-98.0) fL MCH 30.4 (27.0-33.0) pg MCHC 34.0 (31.0-36.0) g/dl RDW 12.0 (11.0-16.0) % Plt Count 297 (160-400) X10*3/uL MPV 9.1 L (9.4-12.4) fL Immature Gran % (Auto) 0.3 (0.0-0.4) % Neut % (Auto) 79.6 H (45-73) % Lymph % (Auto) 13.5 L (20-40) % [place] % (Auto) 5.0 (2-11) % Eos % (Auto) 1.3 (0-4) % Baso % (Auto) 0.3 (0-2) % Lymph # (Auto) 1.7 (1.2-4.9) X10*3/uL [place] # (Auto) 0.6 (0.1-1.2) X10*3/uL Eos # (Auto) 0.2 (0.0-0.4) X10*3/uL Baso # (Auto) 0.0 (0.0-0.2) X10*3/uL Abs Immat Gran (auto) 0.04 H (0.00-0.03) X10*3/uL Absolute Neuts (auto) 10.1 H (2.0-8.3) x10*3/uL Absolute Nucleated RBC 0.000 (0.0-0.012) X10*3/uL Nucleated RBC % (auto) 0.0 (0.0-0.2) /100WBC ESR 34 H (0-15) MM/HR Sodium 137 (135-145) mmol/L Potassium 3.9 (3.3-5.1) mmol/L Chloride 102 (96-108) mmol/L Carbon Dioxide 24 (22-29) mmol/L Anion Gap 15 (12-20) BUN 12 (9-16) mg/dL Creatinine 0.82 (0.5-1.4) mg/dL Estim Creat Clear Calc 113.7 Estimated GFR > 60 Random Glucose 151 H (60-115) mg/dL Calcium 9.6 (8.4-10.2) mg/dL Total Bilirubin 0.4 (0.0-1.0) mg/dL AST 11 (5-37) U/L ALT 12 (0-40) U/L Alkaline Phosphatase 86 (39-117) U/L C-Reactive Protein 2.41 H (< or = 0.50) mg/dL Total Protein 8.1 H (6.5-8.0) g/dL Albumin 4.3 (3.5-5.0) g/dL Procedures Abscess I/D Site: lower extremity (Knee) Side (if applicable): right Local Anesthetic: lidocaine 1% Amount of anesthesia used (mL): 5 Technique: incised with blade Amount of fluid expressed (mL): 1 Sent for culture/gram staining?: No Irrigation: Yes Packing used?: none Complications: pain Discharge Plan Discharge Clinical Impression: Infected prepatellar bursa Patient Disposition: Home, Self-Care Instructions: Knee Bursitis (ED) Additional Instructions: Local care as advised Take antibiotic as prescribed Report to the ER if worsening of the pain/swelling Pain medication as prescribed Prescriptions: New cephalexin 500 mg capsule 500 mg PO QID 10 Days Qty: 40 0RF doxycycline hyclate 100 mg tablet 100 mg PO BID Qty: 20 0RF oxycodone 5 mg tablet 5 mg PO Q6H PRN (Reason: pain) Qty: 20 0RF Rx Instructions: Partial Fill upon patient request. No Action docusate sodium [Colace] 100 mg capsule 100 mg PO DAILY Qty: 30 0RF ibuprofen 600 mg tablet 600 mg PO Q8H PRN (Reason: pain (scale score 4-6)) Qty: 14 0RF sildenafil [Viagra] 100 mg tablet 100 mg PO DAILY PRN (Reason: Erectile Dysfunction) ibuprofen 800 mg tablet 800 mg PO Q6-8H PRN (Reason: Pain) hydroxyzine pamoate 25 mg capsule 25 mg PO Q6-8H PRN (Reason: Anxiety) Interventions: ED Discharge Assessment Last Done: 07/10/24 01:29 Discharge Date/Time: 07/10/24 01:31 Print Language: Mozambican
== END 2024-07-10 01:31 | disposition home or self-care (01) ==
PROVIDERS: Registered Nurse Emergency; Emergency Provider Internal Medicine; PCP Family Medicine
DX: M71.061 Abscess of bursa, right knee (principal); M25.561 Pain in right knee; F17.210 Nicotine dependence, cigarettes, uncomplicated; Z79.899 Other long term (current) drug therapy; Z23 Encounter for immunization
CPT/HCPCS: 10060; 36415; 73564; 80053; 85025; 85652; 86140; 90471; 90715; 99284

== ENCOUNTER 2024-07-11 09:29 | Emergency (ER) | payer MEDICAID, SELFPAY ==
[2024-07-11 09:33] VITALS: BP 121/79; PULSE 72; RESP 16; TEMP 36.4; O2SAT 97; BMI 27.3
[2024-07-11 09:44] LABS: MANUAL DIFF FLAG NO
[2024-07-11 09:47] LABS: Basophils Absolute Auto 0.1 X10*3/uL (0.0-0.2); Basophils Percent Auto 0.4 % (0-2); Eosinophils Absolute Auto 0.2 X10*3/uL (0.0-0.4); Eosinophils Percent Auto 1.4 % (0-4); Hematocrit 40.3 % (42.0-52.0); Hemoglobin 13.4 g/dl (14.0-18.0); Imm Gran Abs Auto 0.04 X10*3/uL (0.00-0.03); Imm Gran Pct Auto 0.3 % (0.0-0.4); Lymphocytes Absolute Auto 1.2 X10*3/uL (1.2-4.9); Mean Corpuscular HGB Conc 33.3 g/dl (31.0-36.0); Mean Corpuscular Hemoglobin 30.2 pg (27.0-33.0); Monocytes Absolute Auto 0.9 X10*3/uL (0.1-1.2); Monocytes Percent Auto 7.6 % (2-11); Neutrophils Absolute Auto 9.8 x10*3/uL (2.0-8.3); Neutrophils Percent Auto 80.3 % (45-73); Platelet Count 293 X10*3/uL (160-400); Red Blood Count 4.43 X10*6/uL (4.60-5.80); Red Cell Distribution Width 12.1 % (11.0-16.0); White Blood Count 12.2 X10*3/uL (4.8-10.8)
[2024-07-11 09:59] LABS: Anion Gap 11 (12-20); Blood Urea Nitrogen 19 mg/dL (9-16); Calcium 9.4 mg/dL (8.4-10.2); Carbon Dioxide 27 mmol/L (22-29); Chloride 102 mmol/L (96-108); Creatinine Clr Calc Pharmacy 133.2; Estimated Glomerular Filt Rate > 60; Glucose Random 119 mg/dL (60-115); Potassium 4.2 mmol/L (3.3-5.1); Sodium 136 mmol/L (135-145)
[2024-07-11 10:00] VITALS: PULSE 72; RESP 18; TEMP 36.7; O2SAT 98
--- NOTE | 2024-07-11 10:22 | ED.GENADULT ---
HPI - General Adult General Chief complaint: Skin/Abscess/Foreign Body Stated complaint: Swollen knee surg recently Time Seen by Provider: 07/11/24 10:22 Source: patient Mode of arrival: ambulatory Limitations: no limitations History of Present Illness ED Provider: Maria Lawson PA-C HPI narrative: Patient is a 48 year old assigned male at with no reported medical history presenting to the emergency department today with continued right knee swelling / redness / pain. Patient states that on 07/09/2024 he was seen here for right knee swelling / pain. Patient states that it started as a pimple that got increasingly worse. Patient states that the doctor here that day incised and drained the area and started him on antibiotics. Patient states that he has been taking the antibiotics as prescribed. Patient denies any dizziness, lightheadedness, abdominal pain, nausea, vomiting, fever, chills, blurry vision, double vision, loss of vision, chest pain, difficulty breathing, shortness of breath, back pain, night sweats, pain with urination, increased urinary frequency, increased urinary urgency, blood in his urine or stool, syncope or a near syncopal episode, bowel incontinence, bladder incontinence, or any other complaints at this time. Onset (ago): day(s) (3) Location: right and lower extremity Relieving factors: none Exacerbating factors: none Associated symptoms: denies other symptoms Treatments prior to arrival: other (incision and drainage, antibiotics) Related Data Home Medications ?Medication ?Instructions ?Recorded ?Confirmed hydroxyzine pamoate 25 mg capsule 25 mg PO Q6-8H PRN Anxiety 08/28/23 09/28/23 ibuprofen 800 mg tablet 800 mg PO Q6-8H PRN Pain 08/28/23 09/28/23 sildenafil 100 mg tablet (Viagra) 100 mg PO DAILY PRN Erectile 08/28/23 09/28/23 Dysfunction Previous Rx's ?Medication ?Instructions ?Recorded docusate sodium 100 mg capsule 100 mg PO DAILY #30 caps 09/20/23 (Colace) ibuprofen 600 mg tablet 600 mg PO Q8H PRN pain (scale 09/20/23 score 4-6) #14 tabs cephalexin 500 mg capsule 500 mg PO QID 10 days #40 caps 07/10/24 doxycycline hyclate 100 mg tablet 100 mg PO BID #20 tabs 09/19/24 oxycodone 5 mg tablet 5 mg PO Q6H PRN pain #20 tabs 07/10/24 Allergies Allergy/AdvReac Type Severity Reaction Status Date / Time No Known Allergies Allergy Verified 07/11/24 09:37 [No Known Allergies*] Review of Systems Constitutional: Constitutional: Reports no additional constitutional complaints, Denies chills, Denies fever(s) and Denies night sweats Eyes: Eyes: Reports no additional eye complaints, Denies blurry vision, Denies change in vision, Denies diplopia, Denies eye discharge, Denies loss of vision and Denies eye pain ENT: Denies dizziness Cardiovascular: Cardiovascular: Reports no additional cardiovascular complaints, Denies chest pain, Denies lightheadedness, Denies Loss of Consciousness and Denies dyspnea Respiratory: Respiratory: Reports no additional respiratory complaints and Denies dyspnea Gastrointestinal: Gastrointestinal: Reports no additional gastrointestinal complaints, Denies abdominal pain, Denies melena, Denies hematochezia, Denies change in bowel habits and Denies change in stool character Genitourinary: Genitourinary: Reports no additional male genitourinary complaints, Denies hematuria, Denies oliguria, Denies difficulty urinating, Denies dysuria, Denies urinary frequency, Denies urinary hesitancy, Denies urinary incontinence and Denies urinary urgency Musculoskeletal: Musculoskeletal: Reports no additional musculoskeletal complaints, Denies numbness and Denies tingling Comments: right knee swelling right knee redness right knee pain Neurologic: Denies dizziness, Denies loss of vision, Denies numbness and Denies tingling Psychiatric: Psychiatric: Reports no additional psychiatric complaints Endocrine: Endocrine: Reports no additional endocrine complaints Hematologic/Lymphatic: Hematologic/Lymphatic: Reports no additional hematologic/lymphatic complaints Allergic/Immunologic: Allergic/Immunologic: Reports no additional allergic/immunologic complaints [facility] Past Medical History Attestation statement: The following information was validated with the patient. Source: old records reviewed and nursing notes reviewed Medical History Anemia History of substance abuse Hx of appendicitis Family history of patent foramen ovale Surgical History H/O colonoscopy Hx of thumb surgery Hx of appendectomy Family History Family History Father Lung cancer Social History Social History Unable to assess alcohol history related to: Unknown Patient Tobacco Use Status: Current everyday Tobacco user Tobacco use type: Cigarette Cigarettes Per Day: 10 Smoked in Last 30 Days: Yes Use of substances other than those prescribed or required for medical reasons: Unknown Advance Directives: No Advance Directives Information Provided: Yes Physical Exam ED Vital Signs: Vital Signs - 24 hr 07/11/24 09:33 07/11/24 10:00 07/11/24 12:00 Temperature 97.6 F 98.1 F 98.1 F Pulse Rate 72 72 71 Respiratory Rate 16 18 18 Blood Pressure 121/79 125/79 Pulse Oximetry 97 98 99 Oxygen Delivery Method Room Air Room Air Room Air BMI result Body Mass Index 27.3 Const General: cooperative, no acute distress, alert and awake Nutritional Appearance: well nourished Orientation/consciousness: patient oriented x3 Limitations: no limitations HENMT Head: Yes normal to inspection and Yes atraumatic Ears: hearing grossly normal bilaterally and external ears normal General nose exam: Normal external nose present, no nasal discharge noted and no epistaxis Face and sinus: Yes normal facial exam, No abrasion and No laceration Mouth: Normal oral and palatal mucosa present, no drooling and no muffled voice Eyes General: appearance normal, both eyes and all related structures Periorbital: periorbital findings normal Eyelids: Yes eyelids normal Conjunctivae: conjunctivae normal Pupils: Equal, round and reactive pupils present EOM: EOMs intact bilaterally Neck Neck: Yes normal visual inspection, Yes full ROM and Yes no lymphadenopathy Chest Chest palpation & inspection: normal inspection of the chest Resp Effort & Inspection: normal respiratory effort and able to speak in complete sentences GI Inspection: Yes normal to inspection Neuro General: patient oriented x3 and moves all extremities Cranial nerves: Yes Equal, round and reactive pupils present Cognition (Neuro): normal cognition Extrem Other: General: Yes full ROM and Yes capillary refill normal Psych Appearance: grossly normal Mental Status: mental status grossly normal Affect: normal affect Attitude: cooperative Thought process: Normal thought process present Thought content: Normal thought content present Insight: Good insight present (Psych) Medications Administered Discontinued Medications Generic Name Dose Route Start Last Admin Trade Name Freq PRN Reason Stop Dose Admin Piperacillin Sod/Tazobactam 50 mls @ 100 mls/hr 07/11/24 10:47 07/11/24 11:47 Sod 3.375 gm/ Sodium Chloride IV 07/11/24 11:16 100 mls/hr ONCE ONE Administration Medical Decision Making Medical Decision Making [facility] Narrative: Patient is a 48 year old assigned male at with a history of recent right knee incision and drainage presenting to the emergency department today with worsening pain and swelling to the right knee. Patient's physical exam was as noted in the physical exam portion of this note. Patient's blood work showed a mildly elevated WBC count but were otherwise unremarkable. I spoke to the orthopedic team who recommended the patient getting IV antibiotics and admitted to medicine for close observation. I explained my physical exam findings as well as all test results to the patient. I answered all questions asked by the patient. Patient adamantly declined medical admission. Patient stated that he has a child at home he cares for that has a seizure disorder. Patient stated that he has no one else who could take care of the child and he is in the middle of a separation. Patient states that he would like the dose of antibiotics in the IV and then to be discharged. I explained, in great detail, the risks of signing out against medical advice. The risks included permanent disability, , worsening infection, decreased quality of life, etc. Patient verbalized understanding of these risks and requested to leave against medical advice anyway. Differential Diagnosis Differential Diagnoses: The differential diagnosis associated with the presentation includes Septic arthritis Septic bursitis Cellulitis of the left knee Admission/Observation Consideration of admission/observation: Escalation of care including admission/observation considered Patient would have been admitted had he not left against medical advice. 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 My interpretation of these results are in the MDM Rationale portion of this note. 07/11/24 09:42 07/11/24 09:42 Labs: Lab Results 07/11/24 Range/Units 09:42 WBC 12.2 H (4.8-10.8) X10*3/uL RBC 4.43 L (4.60-5.80) X10*6/uL Hgb 13.4 L (14.0-18.0) g/dl Hct 40.3 L (42.0-52.0) % MCV 91.0 (80.0-98.0) fL MCH 30.2 (27.0-33.0) pg MCHC 33.3 (31.0-36.0) g/dl RDW 12.1 (11.0-16.0) % Plt Count 293 (160-400) X10*3/uL MPV 9.0 L (9.4-12.4) fL Immature Gran % (Auto) 0.3 (0.0-0.4) % Neut % (Auto) 80.3 H (45-73) % Lymph % (Auto) 10.0 L (20-40) % [place] % (Auto) 7.6 (2-11) % Eos % (Auto) 1.4 (0-4) % Baso % (Auto) 0.4 (0-2) % Lymph # (Auto) 1.2 (1.2-4.9) X10*3/uL [place] # (Auto) 0.9 (0.1-1.2) X10*3/uL Eos # (Auto) 0.2 (0.0-0.4) X10*3/uL Baso # (Auto) 0.1 (0.0-0.2) X10*3/uL Abs Immat Gran (auto) 0.04 H (0.00-0.03) X10*3/uL Absolute Neuts (auto) 9.8 H (2.0-8.3) x10*3/uL Absolute Nucleated RBC 0.000 (0.0-0.012) X10*3/uL Nucleated RBC % (auto) 0.0 (0.0-0.2) /100WBC Sodium 136 (135-145) mmol/L Potassium 4.2 (3.3-5.1) mmol/L Chloride 102 (96-108) mmol/L Carbon Dioxide 27 (22-29) mmol/L Anion Gap 11 L (12-20) BUN 19 H (9-16) mg/dL Creatinine 0.70 (0.5-1.4) mg/dL Estim Creat Clear Calc 133.2 Estimated GFR > 60 Random Glucose 119 H (60-115) mg/dL Calcium 9.4 (8.4-10.2) mg/dL Critical Care Time Critical Care Time Critical Care Time: Yes Total Critical Care Time: 41 Attestation: I spent 41 minutes of Critical Care Time with this patient. This does not include time spent on separately reported billable procedures. Discharge Plan Discharge Clinical Impression: Septic bursitis Patient Disposition: Left Against Medical Advice Instructions: Cellulitis (DC), Knee Bursitis (ED) Additional Instructions: Your right knee infection is getting worse and therefore, we recommended medical admission for IV antibiotics and continued monitoring. At this time, you have declined these services. I explained to you the risks of disability, decreased quality of life, and . You verbalized understanding these risks and still declined hospitalization. If you reconsider this position, please return to the ER immediately. Continue your antibiotics as prescribed. Follow up with the orthopedic team and your primary care provider. Return to the emergency department immediately if your symptoms worsen or if you develop any dizziness, shortness of breath, difficulty breathing, chest pain, blurry vision, loss of vision, nausea, vomiting, abdominal pain, fever, chills, back pain, or any other complaints. Prescriptions: No Action cephalexin 500 mg capsule 500 mg PO QID 10 Days Qty: 40 0RF doxycycline hyclate 100 mg tablet 100 mg PO BID Qty: 20 0RF oxycodone 5 mg tablet 5 mg PO Q6H PRN (Reason: pain) Qty: 20 0RF Rx Instructions: Partial Fill upon patient request. docusate sodium [Colace] 100 mg capsule 100 mg PO DAILY Qty: 30 0RF ibuprofen 600 mg tablet 600 mg PO Q8H PRN (Reason: pain (scale score 4-6)) Qty: 14 0RF sildenafil [Viagra] 100 mg tablet 100 mg PO DAILY PRN (Reason: Erectile Dysfunction) ibuprofen 800 mg tablet 800 mg PO Q6-8H PRN (Reason: Pain) hydroxyzine pamoate 25 mg capsule 25 mg PO Q6-8H PRN (Reason: Anxiety) Referrals: [facility] [Provider Group] (Call to establish and follow up with the orthopedic team. ) Shira Richard MD [Primary Care Provider] - Stand Alone Forms: Against Medical Advice Print Language: Welsh
--- NOTE | 2024-07-11 11:38 | PC.NURSE ---
20G to RAC inserted. Tolerated well. Good blood return.
[2024-07-11] MEDS: Piperacillin Sodium/Tazobactam 3.375 GM in 0.9 % Sodium Chloride 50 ML IV (11:47)
--- NOTE | 2024-07-11 11:53 | PC.NURSE ---
Pt. medicated per DEC.
[2024-07-11 12:00] VITALS: BP 125/79; PULSE 71; RESP 18; TEMP 36.7; O2SAT 99
--- NOTE | 2024-07-11 12:50 | PC.NURSE ---
Cleaned and re-wrapped pt.'s dressing prior to leaving AMA. Jey MARSHALL at bedside to discuss AMA with pt.
[2024-07-11 13:05] VITALS: BP 125/79; PULSE 71; RESP 18; TEMP 36.7; O2SAT 99
== END 2024-07-11 13:06 | disposition left against medical advice (07) ==
PROVIDERS: Emergency Provider Emergency Medicine; PCP Family Medicine
DX: M71.561 Other bursitis, not elsewhere classified, right knee (principal); Z79.899 Other long term (current) drug therapy
CPT/HCPCS: 36415; 80048; 85025; 96365; 99284; J2543

== ENCOUNTER 2024-07-18 09:49 | Outpatient (AMB) | payer MEDICAID, SELFPAY ==
[2024-07-18 09:57] VITALS: BMI 27.4
--- NOTE | 2024-07-18 09:57 | MHC.OFFVIS ---
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 Patient presented to [facility] ED on 07/09/2024 for right knee pain and swelling after popping a pustule, they drained the area and started him on antibiotics. He returned 07/10/2024 & 07/11/24 for increased pain and swelling after this. Patient reports he has some pain and irritation on the anterior aspect of his right knee when he moves around a lot, prolonged walking for an hour or 2 increases his pain. He elevates his leg at home to avoid moving it around. He expresses his knee feels tender with palpitation. His wound is continuing to drain since the ED visit. He takes ibuprofen for relief and is continuing his course of antibiotics. 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 The patient reports that on 07/09/2024, he was evaluated in the emergency department for pain, redness, swelling, and discharge from the anterior aspect of the right knee, that had been ongoing for approximately 3-4 days. At that time, it was recommended that the patient be admitted for IV antibiotics, but the patient left against medical advice due to having a son with special needs he needed to take care of. The patient reports that he did get 1 dose of IV antibiotics in the emergency department, and states he has been taking p.o. antibiotics as prescribed. Today, the patient reports that his symptoms have improved drastically since that date, and he is not experiencing any redness and minimal swelling in the right knee. The patient does report that he is still experiencing some drainage from the right knee where it was incised in the emergency department, but states that this is clear with a yellowish tinge. The patient reports that he has been ?taking it easy? on his right leg, but states he has no issues with weight-bearing or pain at this time. No other acute complaints or concerns at this time. COUNTS INCLUDE 234 BEDS AT THE [facility] Medical History Anemia History of substance abuse Hx of appendicitis Family history of patent foramen ovale Surgical History H/O colonoscopy Hx of thumb surgery Hx of appendectomy Family History Father Lung cancer Social History (Updated 07/18/24 @ 09:58 by NORAH Vasquez) Alcohol intake: former Patient Tobacco Use Status: Current everyday Tobacco user Tobacco use type: Cigarette Cigarettes Per Day: 10 Current occupational status: unemployed Review of Systems Const All systems reviewed & are unremarkable except as noted in HPI and below Physical Exam Vital Signs: BMI result Body Mass Index 27.4 Extrem Other: On inspection, there is no visible deformity of the left knee Minimal edema noted, no erythema or ecchymosis There is noted to be a small, approximately 1 cm open incision on the anterior right knee over the patella, with scant amounts of serosanguineous drainage noted No purulent drainage noted Patient reports no tenderness to palpation in the patella, parapatellar region, medial and lateral joint line, posterior knee Patient is able to extend the left knee to 0 degrees and flex to approximately 120 degrees without difficulty No ligamentous laxity noted Distal sensation intact Capillary refill brisk Negative Loreta's Assessment & Plan Assessment & Plan (1) Septic prepatellar bursitis of right knee: Code(s): M71.161 - Other infective bursitis, right knee Category: Medical Plan 1. Septic prepatellar bursitis of right knee Patient is educated about this condition Patient is educated about the typical recovery course Patient has antibiotics are refilled at this time, as they are clearly effective in controlling any ongoing infection Patient is also provided with dressing supplies for daily dressing changes of the right knee, and is advised that he should continue with daily dressing changes until the wound closes completely Patient is educated on the signs and symptoms of worsening infection Patient is advised that if he begins to experience any of the symptoms, he should call our office, or present to the emergency department if it is after hours or on a weekend. Patient is amenable to this plan Patient will follow-up in 1 week for wound check, sooner with any acute concerns Medications: Refilled cephalexin 500 mg PO QID 10 days 40 caps 0RF doxycycline hyclate 100 mg PO BID 20 tabs 0RF Coding Level of Care Code New Pt Level 3 (08429) Diagnoses Septic prepatellar bursitis of right knee M71.161
== END 2024-07-18 10:19 | disposition home or self-care (01) ==
PROVIDERS: PCP Family Medicine
DX: M71.161 Other infective bursitis, right knee (principal)
CPT/HCPCS: 99204

== ENCOUNTER → 2024-07-18 09:49 | Outpatient (BNVA) | payer SELFPAY | PROVIDERS: PCP Family Medicine | DX: M71.161 Other infective bursitis, right knee (principal) | CPT/HCPCS: 99212 ==

== ENCOUNTER 2024-12-16 06:47 | Emergency (ER) | payer OTHER, SELFPAY ==
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
--- NOTE | ~2024-12-16 | CT_ITS ---
EXAMINATION: CT ABDOMEN AND PELVIS WITHOUT CONTRAST CLINICAL INFORMATION: Abdominal pain. COMPARISON: CT dated September 03, 2017. TECHNIQUE: Multidetector volumetric imaging was performed from the superior aspect of the liver through the pubic symphysis. Sagittal and coronal reformatted images were obtained on the technologist's workstation. This CT examination was performed using dose optimization techniques as appropriate, variously including the following: *Automated exposure control *Adjustment of mA and/or kV according to patient size (this includes techniques or standardized protocols for targeted exams where dose is matched to indication/reason for exam; i.e. extremities or head) *Use of iterative reconstruction technique. DLP: 460.40 mGy centimeter. FINDINGS: Limited examination of the intra-abdominal organs and vascular structures due to lack of IV contrast. LUNG BASES: No acute airspace disease or discrete pulmonary nodules. LIVER, GALLBLADDER, AND BILIARY TREE: Liver measures 15 cm. No intrahepatic biliary ductal dilatation. Gallbladder is contracted. Common bile duct measures 4 mm. PANCREAS: No peripancreatic fluid collections. No main pancreatic ductal dilatation. Focal punctate calcification near the tail of the pancreas, probable vascular. SPLEEN: 10 cm. ADRENAL GLANDS: No nodular lesions. KIDNEYS AND URETERS: No hydronephrosis. No nephrolithiasis. BLADDER: Fluid-filled. GASTROINTESTINAL TRACT: Sutures in the medial aspect of the cecum likely appendectomy. Abundant stool within the large intestine. No intestinal obstruction pattern. No pericolonic edema pattern. No ascites. No pneumoperitoneum. No pneumatosis intestinalis. ABDOMINAL WALL: Sutures in the umbilical region. LYMPH NODES: No gross lymphadenopathy, mesenteric or retroperitoneal. VASCULAR: Calcified plaques distal abdominal aorta and iliac arteries. No aneurysm in the abdominal aorta. Calcifications in the distal splenic artery. PELVIC VISCERA: Normal-sized prostate gland with dystrophic ossifications. OSSEOUS STRUCTURES: Severe osteoarthrosis of the left transverse process of L5-S1. S-shaped curvature of the thoracolumbar spine with a dextroconvex curvature apex at L2-3. Spondylosis L5-S1. CT/CT abdomen pelvis wo IV con IMPRESSION: Abundant stool without intestinal obstruction pattern. Sutures at the umbilical region. 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 Fleischner guidelines were followed. Electronically signed by: Garcia Valderrama MD 12/16/2024 09:13 AM EST
[2024-12-16 06:50] VITALS: BP 120/81; PULSE 83; RESP 16; TEMP 36.3; O2SAT 96; BMI 25.8
--- OUTSIDE RECORDS SUMMARY | 2024-12-16 07:45 | XMS_ITS ---
Author Organization [facility] Address [address] [place] [address] Care Team Providers Care Instruments Sales Representative Name Role Phone Shira Richard MD Primary Care Provider Larry Huang [phone] REASON FOR VISIT colon screening Encounters Encounter Location Date Provider Diagnosis [facility] [address], [place] [id number] 07/09/2023 Larry Shukla PLAN OF TREATMENT No Information
--- OUTSIDE RECORDS SUMMARY | 2024-12-16 07:45 | XMS_ITS | Patient Health Record ---
Author Organization [facility] Address [address] [place] [id number] Care Team Providers Care Belt Fixer Name Role Phone Jose Manuel HANNA, Shira Primary Care Provider Larry Huang Unavailable [phone] ALLERGIES No Known Allergies REASON FOR REFERRAL No Information MEDICATIONS Medication SIG (Take, Route, Frequency, Duration) Notes Start Date End Date Status Dulcolax (colon prep) 5 MG take at 3:00 p.m and 7:00p.m. Orally two tablets twice a day for one day for 1 day 12/12/2022 Active MiraLax (colon prep) 17 GM/SCOOP One 238 Gm bottle mixed with Gatorade or Crystal Light Orally begin at 5:00 p.m. the day before the procedure for 1 day 12/12/2022 Active IMMUNIZATIONS Vaccine Route Administration Date Status Comme nts Influenza Unknown 12/12/2022 Refused SOCIAL HISTORY Tobacco Use: Social History Observation Description Date Details (start date - stop date) Current Smoker NA - NA Sex Assigned At : Social History Observation Description Sex Assigned At Unknown Tobacco Use/Smoking Question Answer Notes Patient is a current smoker How often do you smoke cigarettes? every day How many cigarettes a day do you smoke? 11-20 Alcohol Screen Question Answer Notes Did you have a drink contain ing alcohol in the past year? Yes How often did you have a dri nk containing alcohol in the past year? 4 or more times a week (4 points) How many drinks did you have on a typical day when you were drinking in the past year? 1 or 2 drinks (0 point) Points 4 Interpretation Positive PROBLEMS Problem Type ICD Code Onset Dates Problem Status W/U Status Risk SNOMED Code Notes Problem Colon cancer screening (Z12.11) Active confirmed 316150087 Problem Preprocedural examination (Z01.818) Active confirmed [id number] PLAN OF TREATMENT Future Test Test Name Order Date COLONOSCOPY 12/12/2022 Insurance Providers Payer Name Payer Address Payer Phone Subscriber Number Group Number Insured Name Patient Relationship to Insured Coverage Start Date Coverage End Date [facility] ([facility]ED[facility] L) [address] [place] [address] JOHN GARCIA Self - patient is the insured 2023 MEDICAL (GENERAL) HISTORY Medical History History ICD Code PFO--never closed--discovered at age 18 Denies AR,DM,CVA,Lung disease,renal dise ase History of substance abuse with opiates Normocytic anemia Surgical History Surgery Date(Month/Year) Appendectomy in 2017 with a gangrenous appendicitis-done laparoscopically by Dr. Headley Right thumb age 18
--- OUTSIDE RECORDS SUMMARY | 2024-12-16 07:45 | XMS_ITS | Clinical Summary ---
Author Organization [employer] Address [address] [place] [address] Care Team Providers Care Psychiatric Tech Name Role Phone Shira Richard MD Primary Care Provider [phone] Allergies Active Allergy Reactions Criticality Noted Date Comments Bee Venom Anaphylaxis High 04/11/2023 Medications * This document contains information received from the source organization and may not represent a complete record from that organization. testosterone enanthate (Xyosted) 75 MG/0.5ML solution auto-injector Inject (75MG) by subcutaneous route every week in the abdomen 2 Active ferrous gluconate (Fergon) 324 (38 Fe) MG tabletIndicatio ns:Anemia, unspecified type Take 1 tablet (324 mg) by mouth every other day. 45 tablet 1 2 Active Bisacodyl EC 5 MG EC tablet TAKE 2 TABLET 2 TIMES A DAY BY MOUTH AT 3PM AND 7PM 3 Active sildenafil (Viagra) 100 MG tabletIndicatio ns:Erectile disorder Take 1 tablet (100 mg) by mouth if needed for erectile dysfunction for up to 10 doses. 10 tablet 2 3 Active QUEtiapine (SEROquel) 50 MG tablet Take 1 tablet (50 mg) by mouth at bedtime. 90 tablet 3 Active hydrOXYzine pamoate (Vistaril) 25 MG capsule TAKE ONE CAPSULE EVERY 6 HOURS NEEDED FOR ANXIETY 90 capsule 1 4 Active Active Problems Problem Noted Date Diagnosed Date Adjustment disorder with mixed anxiety and depre ssed mood 07/31/2023 Alcohol-related disorder 07/31/2023 Umbilical hernia with obstruction, without gangr carl 07/25/2023 Assessment & Plan (07/25/2023 2:11 PM EDT): Umbilical hernia on examination, will refer to general surgery Anxious mood 07/25/2023 Assessment & Plan (07/25/2023 2:17 PM EDT): Patient is tangential, having difficulties sleeping, muscle tension, restlessness and irritability. At this point will need to r/o symptoms are not associated to use disorder. Will hold off trial of SSRI, will start SGA & hydroxyzine. Will f/up telephone call in 2 weeks. Opiate use 10/03/2022 Assessment & Plan (07/25/2023 2:11 PM EDT): Patient with OUD, open to trial suboxone. I called Cristi [facility]ES nurse and they will setup for nurse intake and then provider intake. Hypogonadism in male 10/03/2022 Assessment & Plan (10/03/2022 5:06 PM EST): Will need to discuss with PA specialist to assess reason this was denied for patient Erectile disorder 10/03/2022 Assessment & Plan (07/25/2023 10:06 AM EDT): -Patient had a medication refill. Assessment & Plan (10/03/2022 5:05 PM EST): Will refill sidenafil. Anemia 10/03/2022 Assessment & Plan (10/03/2022 5:06 PM EST): Refill iron supplementation and switch miralax for senokot. Constipation 10/03/2022 Assessment & Plan (10/03/2022 5:07 PM EST): In the setting of iron supplementation, will switch miralax for senokot Social History Tobacco Use Types Packs/Day Years Used Date Smoking Tobacco: Every Day Cigarettes Passive Smoke Exposure: Never Smokeless Tobacco: Never Alcohol Use Standard Drinks/Week Comments Never 0 (1 standard drink = 0.6 oz pur e alcohol) Depression Answer Date Recorded Patient Health Questionnaire-9 Score 4 01/12/2023 Depression Answer Date Recorded Patient Health Questionnaire-2 Score 2 01/12/2023 Sex and Gender Information Value Date Recorded Sex Assigned at Male 08/21/2022 10:39 AM EDT Legal Sex Male 10:39 AM EDT Gender Identity Male 07/26/2023 1:57 PM EDT Sexual Orientation Straight 08/21/2022 10 :39 AM EDT Last Filed Vital Signs Vital Sign Reading Time Taken Comments Blood Pressure 120/78 08/15/2023 10:17 AM EDT Pulse 67 07/31/2023 10:10 AM EDT Temperature 36.4 ??C (97.6 ??F) 07/31/2023 10:10 AM E DT Respiratory Rate 18 07/31/2023 10:10 AM EDT Oxygen Saturation 97% 07/25/2023 9:26 AM EDT Inhaled Oxygen Concentration - - Weight 80.5 kg (177 lb 6.4 oz) 07/25/2023 9:26 A M EDT Height 176 cm (5' 9.29 ) 07/25/2023 9:26 AM EDT Body Mass Index 25.98 07/25/2023 9:26 AM EDT Plan of Treatment Health Maintenance Due Date Last Done Comments CT Colonography 1975 Colonoscopy 1975 Colorectal Cancer Screening 1975 Dental Prophylaxis 1975 FIT DNA/Cologuard 1975 FIT 1975 FOBT 1975 SDOH Screening 1975 Sigmoidoscopy 1975 Alcohol/Substance Use Screening 1987 Family Planning (PISQ) 1990 Hepatitis B Vaccines (1 of 3 - 19+ 3-dose series) 1994 Pneumococcal Vaccine: Pediatrics (0 to 5 Years) and At-Risk Patients (6 to 49) Years) (1 of 2 - PCV) 1994 Dental X-Ray: Bitewings 09/28/2022 09/27/2021 Depression Screening 01/13/2024 01/12/2023, 01/12/2023 Dental Oral Exam 03/07/2024 09/06/2023, 09/27/2021 COVID-19 Vaccine (3 - 2023-2 5 season) 2024 06/04/2021, 05/14/2021 Influenza Vaccine (#1) 2024 Tobacco Screening 08/15/2024 08/15/2023 Dental X-Ray: Full Mouth 09/28/2024 09/27/2021 Zoster Vaccines (1 of 2) 2025 Lipid Panel 06/15/2027 06/15/2022 DTaP/Tdap/Td Vaccines (2 - T d or Tdap) 07/09/2034 07/09/2024 RSV Patients and Patients Aged 60 years or older (1 - 1-dose 75+ series) 2050 HIV Screening Completed 06/15/2022, 04/01/2022 Hepatitis C Screening Completed 06/15/2022 , 04/01/2022 HIB Vaccines Aged Out No longer eligi ble based on patient's age to complete this topic HPV Vaccines Aged Out No longer eligi ble based on patient's age to complete this topic Hepatitis A Vaccines Aged Out No long er eligible based on patient's age to complete this topic IPV Vaccines Aged Out No longer eligi ble based on patient's age to complete this topic Meningococcal Vaccine Aged Out No scarlett andra eligible based on patient's age to complete this topic RSV under 20 months Aged Out No longe r eligible based on patient's age to complete this topic Rotavirus Vaccines Aged Out No longer eligible based on patient's age to complete this topic Procedures Procedure Name Priority Date/Time Associated Diagnosis Comments PERIODIC ORAL EVALUATION - ESTABLISHED PATIENT Routine 09/06/2023 8:00 AM EST ZZZ HISTORICAL HEPATITIS C AB W/REFL TO HCV RNA, QN, PCR Routine 06/15/2022 11:30 AM EDT HIV 1/2 ANTIGEN/ANTIBODY, FOURTH GENERATION W/RFL Routine 06/15/2022 11:30 AM EDT LIPID PANEL, STANDARD Routine 06/15/2022 11:26 AM EDT INTRAORAL - COMPLETE SERIES OF RADIOGRAPHIC IMAGES Routine 09/27/2021 12:00 AM EST from Last 3 Months or Most Recently Relevant to Health Maintenance Results * HEPATITIS C AB W/REFL TO HCV RNA, QN, PCR (06/15/2022 11:30 AM EDT) HEPATITIS C ANTIBODY NON-REACT MELINA NON-REACT MELINA [facility] INDEX 0.08 <1.00 [facility] Comment: ?? HCV antibody was non-reactive. There is no laboratory ?? evidence of HCV infection. ?? In most cases, no further action is required. However, if recent HCV exposure is suspected, a test for HCV RNA (test code 53950) is suggested. ?? For additional information please refer to http://Logical Lighting.Grabhouse/faq/DLV78m5 (This link is being provided for informational/ educational purposes only.) ?? 06/15/2022 11:3 0 AM EDT Shira Richard MD HISTORICAL/NON ORDERABLE LABS Final Result Performing Organization Address City/State/[facility] Co de Phone Number [facility] [address] * HIV 1/2 ANTIGEN/ANTIBODY,FOURTH GENERATION W/RFL (06/15/2022 11:30 AM EDT) HIV-1/2 ANTIGEN AND ANTIBODIES, 4TH GENERATION W/ REFLEX NON-REACT MELINA NON-REACT MELINA [facility] Comment: HIV-1 antigen and HIV-1/HIV-2 antibodies were not detected. There is no laboratory evidence of HIV infection. ?? PLEASE NOTE: This information has been disclosed to you from records whose confidentiality may be protected by state law. ??If your state requires such protection, then the state law prohibits you from making any further disclosure of the information without the specific written consent of the person to whom it pertains, or as otherwise permitted by law. A general authorization for the release of medical or other information is NOT sufficient for this purpose. ? For additional information please refer to http://[employer].Grabhouse/faq/BZI175 (This link is being provided for informational/ educational purposes only.) ? The performance of this assay has not been clinically validated in patients less than 2 years old. ?? 06/15/2022 11:3 0 AM EDT us Shira Richard MD LAB BLOOD ORDERABLES Final Re sult [facility] [address] * (ABNORMAL) LIPID PANEL, STANDARD (06/15/2022 11:26 AM EDT) Chol/HDLC Ratio 3.0 <5.0 (calc) [facility] Cholesterol, Total 185 <200 mg/dL [facility] HDL Cholesterol 62 > OR = 40 mg/dL [facility] LDL Cholesterol 108(H) mg/dL (calc) [facility] Comment: Reference range: <100 ?? Desirable range <100 mg/dL for primary prevention; ?? <70 mg/dL for patients with CHD or diabetic patients ?? with > or = 2 CHD risk factors. ?? LDL-C is now calculated using the Steve-Briggs ?? calculation, which is a validated novel method providing ?? better accuracy than the Friedewald equation in the ?? estimation of LDL-C. ?? Steve MOTLEY et al. IDALIA. 2013;310(19): 8510-5798 ?? (http://education.iyzico.Validity Sensors/faq/VTS681) Non-HDL Cholesterol 123 <130 mg/dL (calc) [facility] Comment: For patients with diabetes plus 1 major ASCVD risk ?? factor, treating to a non-HDL-C goal of <100 mg/dL ?? (LDL-C of <70 mg/dL) is considered a therapeutic ?? option. Triglycerides 63 <150 mg/dL [facility] 06/15/2022 11:2 6 AM EDT us Shira Richard MD LAB BLOOD ORDERABLES Final Re sult [facility] [address] from Last 3 Months or Most Recently Relevant to Health Maintenance Insurance [facility] MEDICAID STAND ADULT Care Teams Psychiatric Tech Relationship Specialty Start Date End Date Shira Richard MD [address] [place] [phone] PCP - General Family Medicine 11/23/21
--- OUTSIDE RECORDS SUMMARY | 2024-12-16 07:45 | XMS_ITS | Encounter Summary ---
Author Organization [employer] Address [address] [facility] 7t [place] [address] Care Team Providers Care Mail Messenger Name Role Phone Shira Richard MD Primary Care Provider [phone] Reason for Visit * Reason Onset Date Comments FYI 07/09/2023 Encounter Details Date Type Department Care Team ([facility] Contact Info) Description 07/09/2023 Telephone [facility] [address] [place] [address] Shira Richard MD [address] [place] [address] FYI Social History Tobacco Use Types Packs/Day Years [...] Orientation Straight 08/21/2022 10 :39 AM EDT documented as of this encounter Miscellaneous Notes * Telephone Encounter - Elva Raymundo RN - 07/09/2023 8:42 AM EDT Will forward below to PCP to inform. * Telephone Encounter - Moraima Joshua - 07/09/2023 8:24 AM EDT Tc from [place] [facility] calling to inform PCP, colonoscopy procedure had to get cancelleddue to patients insurance being inactive. As soon as insurance is active patient will be rescheduled. documented in this encounter Plan of Treatment Not on file documented as of this encounter Visit Diagnoses Not on filedocumented in this encounter Additional Health Concerns Assessment Noted Time PHQ-9 Depression Total Score: 4 01/13/20 23 9:11 AM EDT documented as of this encounter Care Teams Mail Messenger Relationship Specialty Start Date End Date Shira Richard MD [address] [place] [phone] PCP - General Family Medicine 11/23/21 documented as of this encounter
--- OUTSIDE RECORDS SUMMARY | 2024-12-16 07:45 | XMS_ITS ---
Author Organization [facility] Address [address] [place] [address] Care Team Providers Care Food Truck Caterer Name Role Phone Shira Richard MD Primary Care Provider Larry Huang [phone] REASON FOR VISIT cancelled procedure for sunday/ ins Encounters Encounter Location Date Provider Diagnosis [facility] [address] [place] [id number] 07/06/2023 Larry Shukla PLAN OF TREATMENT No Information
--- OUTSIDE RECORDS SUMMARY | 2024-12-16 07:45 | XMS_ITS | Encounter Summary ---
Author Organization [employer] Address [address] [facility] [address] [place] [address] Care Team Providers Care Marketing Planning Manager Name Role Phone Shira Richard MD Primary Care Provider Encounter Details Date Type Department Care Team (Latest Contact Info) Description 09/27/2021 Abstract [facility] CONVERSIONS Dental, Provider, DDS Social History Tobacco Use Types Packs/Day Years Used Date Smoking Tobacco: Never Assessed Sex and Gender Information Value Date Recorded Sex Assigned at Male 08/21/2022 10:39 AM EDT Legal Sex Male 10:39 AM EDT Gender Identity Male 07/26/2023 1:57 PM EDT Sexual Orientation Straight 08/21/2022 10 :39 AM EDT documented as of this encounter Plan of Treatment Not on file documented as of this encounter Visit Diagnoses Not on filedocumented in this encounter Care Teams Marketing Planning Manager Relationship Specialty Start Date End Date Shira Richard MD [address] [place] [phone] PCP - General Family Medicine 11/23/21 documented as of this encounter
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
[2024-12-16 09:58] VITALS: BP 0/0; PULSE 0; RESP 0; TEMP -17.7; TEMP 0; O2SAT 0
== END 2024-12-16 09:59 | disposition home or self-care (01) ==
PROVIDERS: Emergency Provider Emergency Medicine
DX: S00.93XA Contusion of unspecified part of head, initial encounter (principal); S10.93XA Contusion of unspecified part of neck, initial encounter; R10.2 Pelvic and perineal pain; M79.641 Pain in right hand; M54.2 Cervicalgia; R51.9 Headache, unspecified; M25.512 Pain in left shoulder; V43.52XA Car driver injured in collision with other type car in traffic accident, initial encounter; Y93.9 Activity, unspecified; Y92.410 Unspecified street and highway as the place of occurrence of the external cause; Y99.8 Other external cause status
CPT/HCPCS: 70450; 72125; 73030; 73140; 74176; 99282; 99284

== ENCOUNTER → 2024-12-16 07:20 | Outpatient (BNV) | payer OTHER, SELFPAY | PROVIDERS: Emergency Provider Emergency Medicine; Visit Provider Radiology Diagnostic Radiology | DX: R10.9 Unspecified abdominal pain (principal); M54.2 Cervicalgia; S09.90XA Unspecified injury of head, initial encounter; M25.512 Pain in left shoulder; M79.644 Pain in right finger(s) | CPT/HCPCS: 70450; 72125; 73030; 73140; 74176 ==

== ENCOUNTER 2025-01-19 08:52 | Outpatient (REF) | payer OTHER, SELFPAY ==
--- NOTE | ~2025-01-19 | XR_ITS ---
EXAMINATION: XR HAND 3 OR MORE VIEWS RIGHT HISTORY: M79.641 - Pain in right hand COMPARISON: Comparison is made with the prior examination of the right hand and middle finger dated 12/16/2024. FINDINGS: Three views of the right hand are submitted. Osseous mineralization is normal. There is no fracture or dislocation. There is moderate to severe osteoarthritis of the DIP joint of the middle finger. Milder changes are noted involving the remaining DIP joints and the interphalangeal joint of the thumb. There is also mild degenerative change of the MCP and carpometacarpal joints of the thumb. The soft tissues are unremarkable. XR/XR hand RT min 3V IMPRESSION: Degenerative changes of the right hand as described. Electronically signed by: Larry Sims MD 01/19/2025 02:19 PM EDT
--- OUTSIDE RECORDS SUMMARY | 2025-01-20 09:25 | XMS_ITS | Clinical Summary ---
Author Organization [employer] Address [address] 7t [place] [address] Care Team Providers Care Integrity Engineer Name Role Phone Shira Richard MD Primary Care Provider [phone] Allergies Active Allergy Reactions Criticality Noted Date [...] Type Department Care Team Description 01/02/2025 Telephone [facility] [address] [place] [address] Shira Richard MD No Show 01/02/2025 Population Health Risk Score [facility] () Department [address] [place] [phone] Provider, Population Health Generic 12/26/2024 Refill [facility] [address] [place] [address] Shira Richard MD Erectile disorder from Last [...] HEPATITIS C ANTIBODY NON-REACT MELINA NON-REACT MELINA [facility] INDEX 0.08 <1.00 [facility] Comment: ?? HCV antibody was non-reactive. There is no laboratory ?? evidence of HCV infection. ?? In most cases, no further action is required. However, if recent HCV exposure is suspected, a test for HCV RNA (test code 55602) is suggested. ?? For additional information please refer to http://education.Index.SeatNinja/faq/CHF82z5 (This link is being provided for informational/ educational purposes only.) ?? 06/15/2022 11:3 0 AM EDT us Shira Richard MD HISTORICAL/NON ORDERABLE LABS Final Result [facility] [address] * HIV 1/2 ANTIGEN/ANTIBODY,FOURTH GENERATION W/RFL (06/15/2022 11:30 AM EDT) HIV-1/2 ANTIGEN AND ANTIBODIES, 4TH GENERATION W/ REFLEX NON-REACT MELINA NON-REACT MELINA [facility] Comment: HIV-1 antigen and HIV-1/HIV-2 [...] ? For additional information please refer to http://Selo Reserva.Force-A/faq/TIL525 (This link is being provided for informational/ educational purposes only.) ? The performance of this assay has not been clinically validated in patients less than 2 years old. ?? 06/15/2022 11:3 0 AM EDT us hSira Richard MD LAB BLOOD ORDERABLES Final Re sult [facility] [address] * (ABNORMAL) LIPID PANEL, STANDARD (06/15/2022 11:26 AM EDT) Chol/HDLC Ratio 3.0 <5.0 (calc) [facility] Cholesterol, Total 185 <200 mg/dL [facility] HDL Cholesterol 62 > OR = 40 mg/dL [facility] LDL Cholesterol 108(H) mg/dL (calc) [facility] Comment: Reference range: <100 ?? [...] ?? Steve MOTLEY et al. IDALIA. 2013;310(19): 0666-2190 ?? (http://education.Fundgrazing/faq/AYP276) Non-HDL Cholesterol 123 <130 mg/dL (calc) [facility] Comment: For patients with diabetes plus 1 major ASCVD risk ?? factor, treating to a non-HDL-C goal of <100 mg/dL ?? (LDL-C of <70 mg/dL) is considered a therapeutic ?? option. Triglycerides 63 <150 mg/dL [facility] 06/15/2022 11:2 6 AM EDT us Shira Richard MD LAB BLOOD ORDERABLES Final Re sult [facility] [address] from Last 3 Months or Most Recently Relevant to Health Maintenance [place] [address] [place] [address] [facility] MEDICAID STAND ADULT Care Teams Integrity Engineer Relationship Specialty Start Date End Date Shira Richard MD [address] [place] [id number] PCP - General Family Medicine 11/23/21
--- OUTSIDE RECORDS SUMMARY | 2025-01-20 09:25 | XMS_ITS | Encounter Summary ---
Author Organization [employer] Address [address] [facility] 7t [place] [address] Care Team Providers Care Fpga Design Engineer Name Role Phone Shira Richard MD Primary Care Provider [phone] Encounter Details Date Type Department Care Team (Latest Contact Info) Description 09/27/2021 Abstract [facility] CONVERSIONS Dental, Provider, DDS Social History [...] on filedocumented in this encounter Care Teams Fpga Design Engineer Relationship Specialty Start Date End Date Shira Richard MD [address] [place] [phone] PCP - General Family Medicine 11/23/21 documented as of this encounter
--- OUTSIDE RECORDS SUMMARY | 2025-01-20 09:25 | XMS_ITS | Encounter Summary ---
Author Organization [employer] Address [address] [facility] 7t [place] [address] Care Team Providers Care Route Delivery Manager Name Role Phone Shira Richard MD Primary Care Provider [phone] Reason for Visit * Reason Onset Date Comments FYI 07/09/2023 Encounter Details Date Type Department Care Team ([facility] Contact Info) Description 07/09/2023 Telephone [facility] [address] [place] [address] Shira Richard MD [address] [place] [address] FYI Social History Tobacco Use Types Packs/Day [...] - 07/09/2023 8:24 AM EDT Tc from [place] at [facility] GI calling to inform PCP, colonoscopy procedure [...] documented as of this encounter Care Teams Route Delivery Manager Relationship Specialty Start Date End Date Shira Richard MD [address] [place] [id number] PCP - General Family Medicine 11/23/21 documented as of this encounter
--- OUTSIDE RECORDS SUMMARY | 2025-01-20 09:25 | XMS_ITS | Patient Health Record ---
Author Organization [facility] Address [address] [place] [address] Care Team Providers Care Surface Hydrologist Name Role Phone Jose Manuel HANNA, Shira Primary Care Provider Larry Huang Unavailable [phone] Allergies No Known Allergies Reason For Referral [...] Problem Status W/U Status Risk Notes Problem [id number] Colon cancer screening (Z12.11) Active confirmed Problem [id number] Preprocedural examination (Z01.818) Active confirmed Plan Of Treatment Future Test Test Name Order Date COLONOSCOPY 12/12/2022 Insurance Providers Payer Name Payer Address Payer Phone Subscriber Number Group Number Insured Name Patient Relationship to Insured Coverage Start Date Coverage End Date [facility] (NEEDS REFERRA L) [address] [place] [address] JOHN GARCIA Self - patient is the insured 2023 Medical (General) History Medical History History ICD Code PFO--never closed--discovered at age 18 Denies MD,DM,CVA,Lung disease,renal dise ase History of substance abuse with opiates Normocytic anemia Surgical History Surgery Date(Month/Year) Appendectomy in 2017 with a gangrenous appendicitis-done laparoscopically by Dr. Headley Right thumb age 18
== END 2025-01-19 08:53 | disposition home or self-care (01) ==
LOC: HO.HOSX 08:52
DX: M79.641 Pain in right hand (principal)
CPT/HCPCS: 73130

== ENCOUNTER 2025-01-19 11:04 | Outpatient (AMB) | payer OTHER, SELFPAY ==
[2025-01-19 11:06] VITALS: BMI 25.8
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
--- OUTSIDE RECORDS SUMMARY | 2025-01-19 12:39 | XMS_ITS | Patient Health Record ---
Author Organization [facility] Address [address] [place] [address] Care Team Providers Care Timber Poisoner Name Role Phone Jose Manuel HANNA, Shira Primary Care Provider Larry Huang Unavailable [phone] Allergies No Known Allergies Reason For Referral No Information Medications Medication SIG (Take, Route, Frequency, Duration) Notes [...] the procedure for 1 day 12/12/2022 Active Immunizations Vaccine Route Administration Date Status Comme nts Influenza Unknown 12/12/2022 Refused Social History Tobacco Use: Social History Observation Description Date Details (start date - stop date) Current Smoker NA - NA Tobacco Use/Smoking Question Answer Notes Patient is [...] drinks (0 point) Points 4 Interpretation Positive Section Notes: Smoker 1/2 ppd; 1 drink a da y Problems Problem Type SNOMED Code ICD Code Onset Dates Problem Status W/U Status Risk Notes Problem 819157608 Colon cancer screening (Z12.11) Active confirmed Problem [id number] Preprocedural examination (Z01.818) Active confirmed Plan Of Treatment Future Test Test Name Order Date COLONOSCOPY 12/12/2022 Insurance Providers Payer Name Payer Address Payer Phone Subscriber Number Group Number Insured Name Patient Relationship to Insured Coverage Start Date Coverage End Date [facility] (NEEDS REFERRA L) [address] [facility] [place] [address] [phone] JOHN GARCIA Self - patient is the insured 2023 Medical (General) History Medical History History ICD Code PFO--never closed--discovered at age 18 Denies NC,DM,CVA,Lung disease,renal dise ase History of substance abuse with opiates Normocytic anemia Surgical History Surgery Date(Month/Year) Appendectomy in 2017 with a gangrenous appendicitis-done laparoscopically by Dr. Headley Right thumb age 18
--- OUTSIDE RECORDS SUMMARY | 2025-01-19 12:39 | XMS_ITS | Encounter Summary ---
Author Organization [employer] Address [address] [facility] 7t [place] [address] Care Team Providers Care Otolaryngologist Name Role Phone Shira Richard MD Primary Care Provider [phone] Encounter Details Date Type Department Care Team (Latest Contact Info) Description 09/27/2021 Abstract [facility] CONVERSIONS Dental, Provider, DDS Social History Tobacco [...] on filedocumented in this encounter Care Teams Otolaryngologist Relationship Specialty Start Date End Date Shira Richard MD [address] [place] [id number] PCP - General Family Medicine 11/23/21 documented as of this encounter
--- OUTSIDE RECORDS SUMMARY | 2025-01-19 12:39 | XMS_ITS | Clinical Summary ---
Author Organization [employer] Address [address] 7[address] [place] [address] Care Team Providers Care Brine Tank Tender Name Role Phone Shira Richard MD Primary Care Provider [phone] Allergies Active Allergy Reactions Criticality Noted Date Comments Bee Venom Anaphylaxis High 04/11/2023 Medications * This document contains information received from the source organization and may not represent a complete record from that organization. testosterone enanthate (Xyosted) 75 MG/0.5ML solution auto-injector Inject (75MG) by subcutaneous route every week in the abdomen 08/21/20 22 Active ferrous gluconate (Fergon) 324 (38 Fe) MG tabletIndicati ons:Anemia, unspecified type Take 1 tablet (324 mg) by mouth every other day. 45 tablet 1 10/03/20 22 Active Bisacodyl EC 5 MG EC tablet TAKE 2 TABLET 2 TIMES A DAY BY MOUTH AT 3PM AND 7PM 01/01/20 23 Active QUEtiapine (SEROquel) 50 MG tablet Take 1 tablet (50 mg) by mouth at bedtime. 90 tablet 07/25/20 23 Active hydrOXYzine pamoate (Vistaril) 25 MG capsule TAKE ONE CAPSULE EVERY 6 HOURS NEEDED FOR ANXIETY 90 capsule 1 11/07/19 24 Active sildenafil (Viagra) 100 MG tabletIndicati ons:Erectile disorder Take 1 tablet (100 mg) by mouth if needed for erectile dysfunction for up to 10 doses. 10 tablet 2 12/27/19 25 Active sildenafil (Viagra) 100 MG tabletIndicati ons:Erectile disorder Take 1 tablet (100 mg) by mouth if needed for erectile dysfunction for up to 10 doses. 10 tablet 2 07/25/20 23 2024 Discontinued(R eorder (will not trigger notification to Pharmacy)) Active Problems Problem Noted Date Diagnosed Date [...] open to trial suboxone. I called Cristi BURDICKX nurse and they will setup for nurse [...] iron supplementation, will switch miralax for senokot Encounters Date Type Department Care Team Description 01/02/2025 Telephone [facility] [address] [place] [address] Shira Richard MD No Show 01/02/2025 Population Health Risk Score [facility] () Department [address] [place] [address] Provider, Population Health Generic 12/26/2024 Refill [facility] [address] [place] [address] Shira Richard MD Erectile disorder from Last 3 Months Social History Tobacco Use Types Packs/Day Years [...] ESTABLISHED PATIENT Routine 09/06/2023 8:00 AM EST ZDARSHANA HISTORICAL HEPATITIS C AB W/REFL TO HCV [...] HEPATITIS C ANTIBODY NON-REACT MELINA NON-REACT MELINA [facility] INDEX 0.08 <1.00 [facility] Comment: ?? HCV antibody was non-reactive. There is no laboratory ?? evidence of HCV infection. ?? In most cases, no further action is required. However, if recent HCV exposure is suspected, a test for HCV RNA (test code 28519) is suggested. ?? For additional information please refer to http://education.Advanced Cyclone Systems.Popbasic/faq/OPN58z1 (This link is being provided for informational/ educational purposes only.) ?? 06/15/2022 11:3 0 AM EDT us Shira Richard MD HISTORICAL/NON ORDERABLE LABS Final Result [facility] [address] * HIV 1/2 ANTIGEN/ANTIBODY,FOURTH GENERATION W/RFL (06/15/2022 11:30 AM EDT) HIV-1/2 ANTIGEN AND ANTIBODIES, 4TH GENERATION W/ REFLEX NON-REACT MELINA NON-REACT MELINA [facility] Comment: HIV-1 antigen and HIV-1/HIV-2 [...] ? For additional information please refer to http://Keek.Personeta/faq/JOU410 (This link is being provided for informational/ educational purposes only.) ? The performance of this assay has not been clinically validated in patients less than 2 years old. ?? 06/15/2022 11:3 0 AM EDT us Shira Richard MD LAB BLOOD ORDERABLES Final Re sult [facility] [address] * (ABNORMAL) LIPID PANEL, STANDARD (06/15/2022 11:26 AM EDT) Chol/HDLC Ratio 3.0 <5.0 (calc) [facility] Cholesterol, Total 185 <200 mg/dL [facility] HDL Cholesterol 62 > OR = 40 mg/dL [facility] LDL Cholesterol 108(H) mg/dL (calc) [facility] Comment: Reference range: <100 ?? Desirable range <100 mg/dL for primary prevention; ?? <70 mg/dL for patients with CHD or diabetic patients ?? with > or = 2 CHD risk factors. ?? LDL-C is now calculated using the Peri ?? calculation, which is a validated novel method providing ?? better accuracy than the Friedewald equation in the ?? estimation of LDL-C. ?? Steve MOTLEY et al. IDALIA. 2013;310(19): 0487-6620 ?? (http://education.BookLending.com/faq/LEY398) Non-HDL Cholesterol 123 <130 mg/dL (calc) [facility] Comment: For patients with diabetes plus 1 major ASCVD risk ?? factor, treating to a non-HDL-C goal of <100 mg/dL ?? (LDL-C of <70 mg/dL) is considered a therapeutic ?? option. Triglycerides 63 <150 mg/dL [facility] 06/15/2022 11:2 6 AM EDT us Shira Richard MD LAB BLOOD ORDERABLES Final Re sult [facility] [address] from Last 3 Months or Most Recently Relevant to Health Maintenance [place] [address] [address] [facility] MEDICAID STAND ADULT Care Teams Brine Tank Tender Relationship Specialty Start Date End Date Shira Richard MD [address] [place] [id number] PCP - General Family Medicine 11/23/21
--- OUTSIDE RECORDS SUMMARY | 2025-01-19 12:40 | XMS_ITS | Encounter Summary ---
Author Organization [employer] Address [address] [facility] 7t [place] [address] Care Team Providers Care Lactation Specialist Name Role Phone Shira Richard MD Primary Care Provider [phone] Reason for Visit * Reason Onset Date Comments FYI 07/09/2023 Encounter Details Date Type Department Care Team ([facility] Contact Info) Description 07/09/2023 Telephone [facility] [address] [place] [address] Shira Richard MD [address] [place] [address] FYI Social History Tobacco Use Types Packs/Day [...] - 07/09/2023 8:24 AM EDT Tc from [place] at [facility] GI calling to inform PCP, colonoscopy [...] documented as of this encounter Care Teams Lactation Specialist Relationship Specialty Start Date End Date Shira Richard MD [address] [place] [id number] PCP - General Family Medicine 11/23/21 documented as of this encounter
== END 2025-01-19 11:41 | disposition home or self-care (01) ==
LOC: HO.HOS 11:05
DX: M19.041 Primary osteoarthritis, right hand (principal)
CPT/HCPCS: 99213

== ENCOUNTER → 2025-01-19 11:07 | Outpatient (BNV) | payer OTHER, SELFPAY | PROVIDERS: Visit Provider Radiology Diagnostic Radiology | DX: M79.641 Pain in right hand (principal) | CPT/HCPCS: 73130 ==